=== PATIENT | female | born 1940 | race Caucasian/White ===

== ENCOUNTER → 2023-12-23 09:50 | Outpatient (REF) | payer OTHER, MEDICARE, SELFPAY ==
[2023-12-23 10:23] LABS: % Basophils 0.6 % (0-2); % Eosinophils 1.9 % (0-6); % Immature Granulocytes 0.8 % (0-0.5); % Lymphocytes 22.7 % (20.5-51.1); % Monocytes 8.4 % (1.7-9.3); % Neutrophils 65.6 % (42.2-75.2); Absolute Basophils 0.1 10^3/uL (0-0.2); Absolute Eosinophils 0.2 10^3/uL (0-0.7); Absolute Immature Granulocytes 0.1 10^3/uL (0-0.05); Absolute Lymphocytes 1.8 10^3/uL (1.2-3.4); Absolute Monocytes 0.7 10^3/uL (0.1-0.6); Absolute Neutrophils 5.2 10^3/uL (1.4-6.5); Hematocrit 36.1 % (37.0-47.0); Hemoglobin 12.2 g/dL (12.0-16.0); Mean Corp Hgb Conc. 33.8 g/dL (33.0-37.0); Mean Corpuscular Hgb 30.6 pg (27.0-31.0); Mean Corpuscular Volume 90.5 fL (81.0-99.0); Mean Platelet Volume 12.8 fL (7.4-10.4); Nucleated Red Blood Cells % 0 %; Platelet Count 169 10^3/uL (130-400); Red Blood Cell Count 3.99 10^6/uL (4.20-5.40); Red Cell Dist. Width 12.8 % (11.5-14.5); White Blood Cell Count 7.9 10^3/uL (4.8-10.8)
[2023-12-23 10:40] LABS: Ionized Calcium 0.99 mMOL/L (1.15-1.33)
[2023-12-23 10:52] LABS: ALT (SGPT) 29 U/L (0-35); AST (SGOT) 20 U/L (14-36); Albumin 3.5 g/dl (3.5-5.0); Alkaline Phosphatase 91 U/L (38-126); Blood Urea Nitrogen 16 mg/dl (7-17); Calcium 7.8 mg/dl (8.4-10.2); Carbon Dioxide 30 mmol/L (22-30); Chloride 105 mmol/L (98-107); Glucose 119 mg/dl (70-99); Sodium 138 mmol/L (135-145); Total Bilirubin 0.6 mg/dl (0.2-1.3); Total Protein 5.8 g/dl (6.3-8.2); eGFR > 60.00
== END ==
LOC: OLABP 09:50
PROVIDERS: ATTENDING PHYSICIAN Family Medicine
DX: R07.9 Chest pain, unspecified (principal); I10 Essential (primary) hypertension; M62.81 Muscle weakness (generalized); F03.90 Unspecified dementia, unspecified severity, without behavioral disturbance, psychotic disturbance, mood disturbance, and anxiety
CPT/HCPCS: 36415; 80053; 82330; 85025

== ENCOUNTER 2024-08-01 22:45 | Emergency (ER) | payer MEDICARE, OTHER, SELFPAY ==
[2024-08-01 22:51] VITALS: BP 205/76
[2024-08-01 22:53] VITALS: BMI 32.4
[2024-08-01 23:00] VITALS: BP 207/91
[2024-08-01 23:33] VITALS: BP 192/79
[2024-08-01 23:48] LABS: % Basophils 0.4 % (0-2); % Eosinophils 1.4 % (0-6); % Immature Granulocytes 0.4 % (0-0.5); % Lymphocytes 21.3 % (20.5-51.1); % Monocytes 8.1 % (1.7-9.3); % Neutrophils 68.4 % (42.2-75.2); Absolute Basophils 0.1 10^3/uL (0-0.2); Absolute Eosinophils 0.2 10^3/uL (0-0.7); Absolute Lymphocytes 2.4 10^3/uL (1.2-3.4); Absolute Monocytes 0.9 10^3/uL (0.1-0.6); Absolute Neutrophils 7.8 10^3/uL (1.4-6.5); Hematocrit 36.9 % (37.0-47.0); Hemoglobin 12.5 g/dL (12.0-16.0); Mean Corp Hgb Conc. 33.9 g/dL (33.0-37.0); Mean Corpuscular Hgb 29.7 pg (27.0-31.0); Mean Corpuscular Volume 87.6 fL (81.0-99.0); Mean Platelet Volume 11.6 fL (7.4-10.4); Nucleated Red Blood Cells % 0 %; Platelet Count 180 10^3/uL (130-400); Red Blood Cell Count 4.21 10^6/uL (4.20-5.40); Red Cell Dist. Width 13.1 % (11.5-14.5); White Blood Cell Count 11.4 10^3/uL (4.8-10.8)
[2024-08-01 23:59] LABS: ALT (SGPT) 26 U/L (0-35); AST (SGOT) 23 U/L (14-36); Alkaline Phosphatase 116 U/L (38-126); Blood Urea Nitrogen 23 mg/dl (7-17); Carbon Dioxide 29 mmol/L (22-30); Chloride 101 mmol/L (98-107); Estimated Creatinine Clearance 67 ml/min; Glucose 97 mg/dl (70-99); Potassium 3.9 mmol/L (3.5-5.1); Sodium 138 mmol/L (135-145); Total Bilirubin 0.5 mg/dl (0.2-1.3); Total Protein 6.2 g/dl (6.3-8.2); eGFR > 60.00
[2024-08-02] VITALS (7 sets, daily range): BP systolic 178–214; BP diastolic 65–77
--- NOTE | 2024-08-02 00:53 | ED.GENMED ---
History of Present Illness
General
Chief Complaint: Blood Pressure Problem
Source: patient, family and ambulance crew
Exam Limitations: none
Time Seen by Provider: 08/02/24 00:40
Nursing documentation reviewed up to this point in time: agreed with
History of Present Illness
History of Present Illness:
Pleasant 83-year-old female presents to the emergency department with hypertension. She resides at [facility]. She does have a history of hypertension. Tonight she had an espresso that had 150 mg of caffeine.. She noticed that her
blood pressure was elevated. Patient denies chest pain or shortness of breath. Reports no symptoms other than anxiety. She has a history of migraines and epileptic seizures. She denies any notion of having a migraine or seizure. She is
accompanied by her daughter. Other than the asymptomatic high blood pressure, she denies any complaints.
Past History
Past History
ED Past Medical History: Other (Alzheimer's dementia, migraines, seizures, hypertension, hyperlipidemia, pacemaker, GERD, hypothyroidism, sleep apnea, depression)
ED Past Surgical History: Other
Social History
Tobacco: Former smoker
Alcohol: None
Drug: None
Personal: Single
Living: other
Employment: Retired
Family History
Family History: Other
Review of Systems
Review of Systems
Allergies reviewed?: Yes
Unable to obtain full review of systems at this time due to: dementia
Other source history: family
All Other Systems: ROS reviewed and negative except as documented in HPI and ROS
Constitutional: Reports no symptoms
EENT: Reports no symptoms
Respiratory: Reports no symptoms
Cardiac: Reports no symptoms
ABD/GI: Reports no symptoms
: Reports no symptoms
Musculoskeletal: Reports no symptoms
Skin: Reports no symptoms
Neurological: Reports no symptoms
Endocrine: Reports no symptoms
Hematologic/Lymphatic: Reports no symptoms
Psychiatric: Reports no symptoms
Phy Exam
General Physical Exam
General Presentation: well appearing and no apparent distress
General Skin: warm and dry
General Habitus: normal
General Mental: alert
General Hydration: appears well hydrated
ENT Exam
ENT Exam: EOMI, pharynx normal, neck supple and normocephalic
Eye Exam
Eye Exam: PERRL, cornea clear and conjunctiva normal
Cardiovascular Exam
Cardiovascular Exam: regular rate/rhythm, no edema, no murmur and normal peripheral pulses
Pulmonary Exam
Pulmonary Exam: lungs clear, no respiratory distress, no rales, no crackles, no rhonchi, no stridor, no wheezing and no cough
Gastrointestinal Exam
Gastrointestinal Exam: normal bowel sounds, non tender, soft, no organomegaly, no pulsatile mass and non distended
Neurological Exam
Neurological Exam: alert, oriented x3 (Despite having a history of dementia, patient was awake alert and oriented with no obvious memory deficits noted.), no motor deficits and speech normal
Musculoskeletal Exam
Musculoskeletal Exam: full ROM and no edema
Skin Exam
Skin Exam: normal color, warm/dry, no rash and no petechia
Psychiatric Exam
Psychiatric Exam: normal mood/affect
Course
Orders/Labs/Results
Orders:
Orders
08/01/24 23:37
Complete Blood Count/With Diff Urgent
Comprehensive Metabolic Panel Urgent
08/02/24 01:25
Labetalol [Trandate] 200 mg PO NOW STA
Abnormal Lab Results
08/01/24
23:37
WBC 11.4 H 10^3/uL
(4.8-10.8)
Hct 36.9 L %
(37.0-47.0)
MPV 11.6 H fL
(7.4-10.4)
Absolute Neuts (auto) 7.8 H 10^3/uL
(1.4-6.5)
Absolute Monos (auto) 0.9 H 10^3/uL
(0.1-0.6)
BUN 23 H mg/dl
(7-17)
Total Protein 6.2 L g/dl
(6.3-8.2)
08/01/24 23:37
08/01/24 23:37
Vital Signs
Initial and Last Documented VS:
Initial Vital Signs
BP
205/76
08/01/24 22:51
Last Documented Vital Signs
Temp Pulse Resp BP Pulse Ox
97.7 F 62 14 178/65 94
08/01/24 22:52 08/02/24 03:30 08/02/24 03:30 08/02/24 03:00 08/02/24 03:30
*Critical Care Note
Total Time (30-74mins, 75-104mins- exclusive of procedures): Not Applicable
ED Attending Note
-
Portions of this chart may have been created with voice recognition software.� Occasional wrong word or��sound alike� substitutions may have occurred due to the inherent limitations of voice recognition software.
Discharge Plan
Departure
Patient Disposition: Home (Routine Discharge)
Date of Disposition: 08/02/24
Time of Disposition: 03:33
Patient with high blood pressure during this ER visit?: Yes
Condition: Good
Discharge Problem:
Hypertension
Instructions: High Blood Pressure (DC), BLOOD PRESSURE
Prescriptions:
No Action
aspirin 81 MG tablet,delayed release (DR/EC)
81 mg PO DAILY
pantoprazole 40 MG tablet,delayed release (DR/EC)
40 mg PO DAILY
levothyroxine [Levoxyl] 125 MCG tablet
125 mcg PO DAILY
escitalopram oxalate 10 MG tablet
20 mg PO DAILY
lacosamide [Vimpat] 100 MG tablet
100 mg PO BID
Rx Instructions:
pt must have brand name d/t overall not feeling well on generic.
Briviact 50 MG tablet
50 mg PO BID
Xarelto 2.5 mg Tablet
2.5 mg PO BID
cholecalciferol (vitamin D3) [Vitamin D3] 25 mcg (1,000 unit) Tablet
25 mcg PO DAILY
atorvastatin 80 mg tablet
80 mg PO HS
qm-zcg-YY-Ru-Zd-eidjgny-lutein 0.4-162-18 mg Tablet
1 tab PO DAILY
losartan 50 mg Tablet
50 mg PO BID@0800,1700 Qty: 60 0RF
acetaminophen 325 mg Tablet
650 mg PO Q4HPRN PRN (Reason: mild pain/SERRANO/temp> 100.4F) Qty: 60 0RF
labetalol 200 mg Tablet
400 mg PO BID AT 0800,1700 Qty: 60 0RF
cinacalcet 30 mg Tablet
30 mg PO BID Qty: 60 0RF
Referrals:
Sharmin Mendez MD [Family Provider] -
Activity Restrictions/Additional Instructions:
Please continue to take your hypertensive medications as previously directed.
It was a pleasure meeting you and taking part in your care. We hope for your continued healing and wellness.
Please read discharge instructions in their entirety. However, they are for general education and may not describe your exact diagnosis at discharge. Information on your ER visit and medical conditions were discussed with you along with appropriate
follow up information...
If indicated, please take your medications as instructed and indicated on discharge paperwork.
Please schedule a follow up appointment as directed. Call to schedule an appointment
Please return to the emergency department with ANY change in, persisting, or worsening of symptoms. If any of your symptoms do not improve, or persist, or become more severe within 6-12 hours, please return to the emergency department for further
care.
Please return to the emergency department if you develop a headache, neck pain/stiffness, fever greater than 100.4F, chest pain, shortness of breath, persistent nausea, vomiting, slurred speech, difficulty walking, numbness/tingling, weakness, signs
of infection or any other symptoms that are worrisome to you.
If you have any questions or concerns please do not hesitate to call the Hospital at or E-mail me directly at [email or web address]
Interventions
Interventions:
*Risk Screen - Suicide Last Done: 08/01/24 22:53
*General Assessment Last Done: 08/01/24 22:53
*Neglect/Abuse Screening Last Done: 08/01/24 22:53
ED- Fall Risk Assessment Last Done: 08/02/24 03:42
*ED COVID-19 Vaccine History Last Done: 08/01/24 22:53
*Nursing Disposition Last Done: 08/02/24 03:42
ED- Cardiac Assessment Last Done: 08/01/24 22:53
ED- Neurological Assessment Last Done: 08/01/24 22:53
ED- Pulmonary Assessment Last Done: 08/01/24 22:53
Discharge Date and Time
Discharge Date/Time: 08/02/24 03:43
Print Language: SWEDISH
[2024-08-02] MEDS: TRANDATE 200 MG PO (01:36)
== END 2024-08-02 03:43 | disposition home or self-care (01) ==
LOC: EMR 22:45
PROVIDERS: EMERGENCY PHYSICIAN Student in an Organized Health Care Education/Training Program; FAMILY PHYSICIAN Family Medicine
DX: I10 Essential (primary) hypertension (principal); G40.909 Epilepsy, unspecified, not intractable, without status epilepticus; Z87.891 Personal history of nicotine dependence
CPT/HCPCS: 99283; 80053; 85025

== ENCOUNTER 2024-11-01 23:22 | Emergency (ER) | payer MEDICARE, OTHER, SELFPAY ==
[2024-11-01 23:24] VITALS: BP 215/76; BMI 32.7
[2024-11-01 23:28] VITALS: BP 215/76
[2024-11-01 23:47] VITALS: BP 209/66
[2024-11-02] VITALS: BP 211/78
--- NOTE | 2024-11-02 00:06 | ED.GENMED ---
History of Present Illness
<STEPHON Sr - Last Filed: 11/02/24 00:46>
General
Chief Complaint: Blood Pressure Problem
Source: patient and family
Exam Limitations: none
Time Seen by Provider: 11/01/24 23:37
Nursing documentation reviewed up to this point in time: agreed with
History of Present Illness
History of Present Illness:
Pt is an 84yo F w/ PMH of Alzheimer's dementia, migraines, seizures, hypertension, hyperlipidemia, pacemaker, GERD, hypothyroidism, sleep apnea, depression who presents to the ED with her daughter for hypertension (systolic > 200) x 4 hours. Pt
currently lives at an assisted living facility where she is administered medication and has her BP checked twice daily. She states she received both doses of her medication today at 08:00am and 05:00pm, but when her BP was checked at 08:00pm, it was
measuring over 200 systolic which concerned her. Pt says that she has 'felt off' over the past two days. Pt denies SERRANO, dizziness, changes in vision, chest pain, SOB, dyspnea, abdominal pain, n/v/d/c, or falls. Pt states she does not smoke and has
not had caffeine to drink today.
Past History
<STEPHON Sr - Last Filed: 11/02/24 00:46>
Past History
ED Past Medical History: Other (Alzheimer's dementia, migraines, seizures, hypertension, hyperlipidemia, pacemaker, GERD, hypothyroidism, sleep apnea, depression)
ED Past Surgical History: Other
Social History
Tobacco: Former smoker
Alcohol: None
Drug: None
Personal: Single
Living: other
Employment: Retired
Family History
Family History: Other
Review of Systems
<STEPHON Sr - Last Filed: 11/02/24 00:46>
Review of Systems
Allergies reviewed?: Yes
Other source history: family
Constitutional: Denies fever, fatigue or chills
Respiratory: Denies cough or trouble breathing
Cardiac: Denies chest pain, palpitations or syncope
ABD/GI: Denies abdominal pain, nausea, vomiting, diarrhea or constipated
: Reports incontinence; Denies dysuria, flank pain or difficulty voiding
Musculoskeletal: Denies muscle pain or muscle stiffness
Neurological: Denies dizzy, headache, weakness or numbness
Phy Exam
<ST RembertoWI - Last Filed: 11/02/24 00:46>
General Physical Exam
General Presentation: well appearing and no apparent distress
General age: appears stated age
General Skin: warm and dry
General Habitus: normal and elderly
General Mental: alert
General Hydration: appears well hydrated
Eye Exam
Eye Exam: PERRL
Cardiovascular Exam
Cardiovascular Exam: regular rate/rhythm and pacemaker
Pulmonary Exam
Pulmonary Exam: lungs clear and no respiratory distress
Gastrointestinal Exam
Gastrointestinal Exam: non tender, soft and non distended
Neurological Exam
Neurological Exam: alert, oriented x3, no motor deficits, no sensory deficits and speech normal
<Saad Graves DO - Last Filed: 11/02/24 01:18>
Physical Exam
Physical Exam:
Physical Exam
General: no apparent distress, not acutely ill
Neck: No jaundice
Heart: Regular
Lungs: no acute respiratory distress.
Neuro: alert and oriented. no focal neurological deficits
Skin: no rash
Psychiatric: well kept. interactive and cooperative
Extremities: no edema.
Course
<STEPHON Sr - Last Filed: 11/02/24 00:46>
Orders/Labs/Results
Orders:
Orders
11/02/24 00:06
Losartan [Cozaar] 50 mg PO NOW STA
11/02/24 00:21
Complete Blood Count/With Diff Urgent
Comprehensive Metabolic Panel Urgent
Magnesium Urgent
11/02/24 00:43
Acetaminophen [Tylenol] 650 mg PO NOW STA
Abnormal Lab Results
11/02/24
00:21
RBC 4.16 L 10^6/uL
(4.20-5.40)
MCHC 32.1 L g/dL
(33.0-37.0)
MPV 12.0 H fL
(7.4-10.4)
Absolute Monos (auto) 0.7 H 10^3/uL
(0.1-0.6)
Carbon Dioxide 32 H mmol/L
(22-30)
Glucose 102 H mg/dl
(70-99)
Calcium 8.3 L mg/dl
(8.4-10.2)
Total Protein 6.2 L g/dl
(6.3-8.2)
11/02/24 00:21
11/02/24 00:21
Vital Signs
Initial and Last Documented VS:
Initial Vital Signs
Temp Pulse Resp BP Pulse Ox
97.8 F 63 15 215/76 97
11/01/24 23:24 11/01/24 23:24 11/01/24 23:24 11/01/24 23:24 11/01/24 23:24
Last Documented Vital Signs
Temp Pulse Resp BP Pulse Ox
97.8 F 60 16 188/71 97
11/01/24 23:24 11/02/24 01:00 11/02/24 01:00 11/02/24 01:00 11/01/24 23:24
Aliselt;Saad Graves, DO - Last Filed: 11/02/24 01:18>
Orders/Labs/Results
Orders:
Orders
11/02/24 00:06
Losartan [Cozaar] 50 mg PO NOW STA
11/02/24 00:21
Complete Blood Count/With Diff Urgent
Comprehensive Metabolic Panel Urgent
Magnesium Urgent
11/02/24 00:43
Acetaminophen [Tylenol] 650 mg PO NOW STA
Abnormal Lab Results
11/02/24
00:21
RBC 4.16 L 10^6/uL
(4.20-5.40)
MCHC 32.1 L g/dL
(33.0-37.0)
MPV 12.0 H fL
(7.4-10.4)
Absolute Monos (auto) 0.7 H 10^3/uL
(0.1-0.6)
Carbon Dioxide 32 H mmol/L
(22-30)
Glucose 102 H mg/dl
(70-99)
Calcium 8.3 L mg/dl
(8.4-10.2)
Total Protein 6.2 L g/dl
(6.3-8.2)
11/02/24 00:21
11/02/24 00:21
Vital Signs
Initial and Last Documented VS:
Initial Vital Signs
Temp Pulse Resp BP Pulse Ox
97.8 F 63 15 215/76 97
11/01/24 23:24 11/01/24 23:24 11/01/24 23:24 11/01/24 23:24 11/01/24 23:24
Last Documented Vital Signs
Temp Pulse Resp BP Pulse Ox
97.8 F 60 16 188/71 97
11/01/24 23:24 11/02/24 01:00 11/02/24 01:00 11/02/24 01:00 11/01/24 23:24
<STEPHON Sr - Last Filed: 11/02/24 00:46>
MDM/Problems Addressed
Differential Diagnosis Includes:
essential hypertension, hypertensive emergency
<Saad Graves DO - Last Filed: 11/02/24 01:18>
MDM/Problems Addressed
MDM/Problems Addressed:
Blood pressure
Chronic conditions affecting care: HTN
Acute Exacerbation and/or Progression of Chronic Illness: HTN
<STEPHON Sr - Last Filed: 11/02/24 00:46>
*Critical Care Note
Total Time (30-74mins, 75-104mins- exclusive of procedures): Not Applicable
<Saad Graves DO - Last Filed: 11/02/24 01:18>
*Pulse Oximetry
Patient hypoxic: no
*Boom Tender Interpretation
Rate: normal
Interpretation: normal
Heart Rate: 64
Rhythm: sinus
<STEPHON Sr - Last Filed: 11/02/24 00:46>
Update Note
Update Note:
Seen with student examined independently 84-year-old female multiple chronic medical conditions including hypertension on labetalol 200 twice daily losartan 50 twice daily has had high blood pressure intermittently for a while, over 200 systolic
here patient really without any new symptoms she has chronic incontinence some chronic dizziness she has Alzheimer's she lives in independent living here she is very pleasant looks comfortable, percent accompanied by her daughter will check
electrolytes I suspect to be normal with normal few months ago, given extra dose of losartan could also consider increasing her labetalol does have a pacemaker set at 60 reportedly
11/02/24 @ 12:43am: Pt states she is developing a headache, but is otherwise comfortable; She states she usually takes Tylenol for the pain; will update Dr. Graves for medication order - AD
<Saad Graves DO - Last Filed: 11/02/24 01:18>
Update Note
Update Note:
Seen with student examined independently 84-year-old female multiple chronic medical conditions including hypertension on labetalol 200 twice daily losartan 50 twice daily has had high blood pressure intermittently for a while, over 200 systolic
here patient really without any new symptoms she has chronic incontinence some chronic dizziness she has Alzheimer's she lives in independent living here she is very pleasant looks comfortable, percent accompanied by her daughter will check
electrolytes I suspect to be normal with normal few months ago, given extra dose of losartan could also consider increasing her labetalol does have a pacemaker set at 60 reportedly
11/02/24 @ 12:43am: Pt states she is developing a headache, but is otherwise comfortable; She states she usually takes Tylenol for the pain; will update Dr. Graves for medication order - AD
Update, patient resting comfortably blood pressure improved labs noted
ED Attending Note
<STEPHON Sr - Last Filed: 11/02/24 00:46>
-
Portions of this chart may have been created with voice recognition software.� Occasional wrong word or��sound alike� substitutions may have occurred due to the inherent limitations of voice recognition software.
Discharge Plan
Departure
Patient Disposition: Home (Routine Discharge)
Date of Disposition: 11/02/24
Time of Disposition: 01:17
Patient with high blood pressure during this ER visit?: Yes
Condition: Good
Discharge Problem:
Essential (primary) hypertension
Instructions: BLOOD PRESSURE
Prescriptions:
No Action
aspirin 81 MG tablet,delayed release (DR/EC)
81 mg PO DAILY
pantoprazole 40 MG tablet,delayed release (DR/EC)
40 mg PO DAILY
levothyroxine [Levoxyl] 125 MCG tablet
125 mcg PO DAILY
escitalopram oxalate 10 MG tablet
20 mg PO DAILY
lacosamide [Vimpat] 100 MG tablet
100 mg PO BID
Rx Instructions:
pt must have brand name d/t overall not feeling well on generic.
Briviact 50 MG tablet
50 mg PO BID
Xarelto 2.5 mg Tablet
2.5 mg PO BID
cholecalciferol (vitamin D3) [Vitamin D3] 25 mcg (1,000 unit) Tablet
25 mcg PO DAILY
atorvastatin 80 mg tablet
80 mg PO HS
eq-kji-QI-Gz-No-vccsfeh-lutein 0.4-162-18 mg Tablet
1 tab PO DAILY
losartan 50 mg Tablet
50 mg PO BID@0800,1700 Qty: 60 0RF
acetaminophen 325 mg Tablet
650 mg PO Q4HPRN PRN (Reason: mild pain/SERRANO/temp> 100.4F) Qty: 60 0RF
labetalol 200 mg Tablet
400 mg PO BID AT 0800,1700 Qty: 60 0RF
cinacalcet 30 mg Tablet
30 mg PO BID Qty: 60 0RF
Referrals:
Sharmin Mendez MD [Family Provider] - Next open appointment
Interventions
Interventions:
*Risk Screen - Suicide Last Done: 11/01/24 23:31
*General Assessment Last Done: 11/01/24 23:31
*Neglect/Abuse Screening Last Done: 11/01/24 23:31
*ED COVID-19 Vaccine History Last Done: 11/01/24 23:31
ED- Cardiac Assessment Last Done: 11/01/24 23:41
ED- Neurological Assessment Last Done: 11/01/24 23:41
ED- Pulmonary Assessment Last Done: 11/01/24 23:41
Discharge Date and Time
Print Language: MICRONESIAN
[2024-11-02] MEDS: COZAAR 50 MG PO (00:22)
[2024-11-02 00:23] VITALS: BP 204/79
[2024-11-02 00:42] LABS: ALT (SGPT) 24 U/L (0-35); AST (SGOT) 21 U/L (14-36); Alkaline Phosphatase 100 U/L (38-126); Blood Urea Nitrogen 14 mg/dl (7-17); Calcium 8.3 mg/dl (8.4-10.2); Carbon Dioxide 32 mmol/L (22-30); Chloride 101 mmol/L (98-107); Estimated Creatinine Clearance 66 ml/min; Glucose 102 mg/dl (70-99); Magnesium 1.8 mg/dl (1.6-2.3); Potassium 4.1 mmol/L (3.5-5.1); Sodium 139 mmol/L (135-145); Total Bilirubin 0.5 mg/dl (0.2-1.3); Total Protein 6.2 g/dl (6.3-8.2); eGFR > 60.00
[2024-11-02] MEDS: TYLENOL 650 MG PO (00:46)
[2024-11-02 00:47] LABS: % Basophils 0.5 % (0-2); % Eosinophils 1.6 % (0-6); % Immature Granulocytes 0.5 % (0-0.5); % Lymphocytes 23.6 % (20.5-51.1); % Monocytes 8.4 % (1.7-9.3); % Neutrophils 65.4 % (42.2-75.2); Absolute Eosinophils 0.1 10^3/uL (0-0.7); Absolute Lymphocytes 2.1 10^3/uL (1.2-3.4); Absolute Monocytes 0.7 10^3/uL (0.1-0.6); Absolute Neutrophils 5.7 10^3/uL (1.4-6.5); Hematocrit 38.9 % (37.0-47.0); Hemoglobin 12.5 g/dL (12.0-16.0); Mean Corp Hgb Conc. 32.1 g/dL (33.0-37.0); Mean Corpuscular Volume 93.5 fL (81.0-99.0); Nucleated Red Blood Cells % 0 %; Platelet Count 159 10^3/uL (130-400); Red Blood Cell Count 4.16 10^6/uL (4.20-5.40); Red Cell Dist. Width 13.2 % (11.5-14.5); White Blood Cell Count 8.8 10^3/uL (4.8-10.8)
[2024-11-02 01:00] VITALS: BP 188/71
== END 2024-11-02 01:27 | disposition home or self-care (01) ==
LOC: EMR 23:22
PROVIDERS: EMERGENCY PHYSICIAN Emergency Medicine; FAMILY PHYSICIAN Family Medicine
DX: I10 Essential (primary) hypertension (principal); R51.9 Headache, unspecified; G30.9 Alzheimer's disease, unspecified; F02.80 Dementia in other diseases classified elsewhere, unspecified severity, without behavioral disturbance, psychotic disturbance, mood disturbance, and anxiety; E78.5 Hyperlipidemia, unspecified; E03.9 Hypothyroidism, unspecified; K21.9 Gastro-esophageal reflux disease without esophagitis; G47.30 Sleep apnea, unspecified; Z87.891 Personal history of nicotine dependence; Z95.0 Presence of cardiac pacemaker; Z79.899 Other long term (current) drug therapy
CPT/HCPCS: 99283; 80053; 83735; 85025

== ENCOUNTER 2024-11-06 23:34 | Emergency (ER) | payer MEDICARE, OTHER, SELFPAY ==
[2024-11-06 23:36] VITALS: BP 174/111
[2024-11-06 23:42] VITALS: BP 174/111
[2024-11-06 23:59] VITALS: BMI 32.3
[2024-11-07] VITALS (10 sets, daily range): BP systolic 136–220; BP diastolic 53–72
[2024-11-07] MEDS: TRANDATE 20 MG IV (01:02)
--- NOTE | 2024-11-07 01:04 | ED.GENMED ---
History of Present Illness
General
Chief Complaint: Blood Pressure Problem
Source: patient and family
Exam Limitations: none
Time Seen by Provider: 11/06/24 23:53
History of Present Illness
History of Present Illness:
See MDM
Past History
Past History
ED Past Medical History: Other (Alzheimer's dementia, migraines, seizures, hypertension, hyperlipidemia, pacemaker, GERD, hypothyroidism, sleep apnea, depression)
ED Past Surgical History: Other
Social History
Tobacco: Former smoker
Alcohol: None
Drug: None
Personal: Single
Living: other
Employment: Retired
Family History
Family History: Other
Phy Exam
Physical Exam
Physical Exam:
See MDM
Course
Orders/Labs/Results
Orders:
Orders
11/06/24 23:51
CMP [Comprehensive Metabolic Panel] Urgent
Complete Blood Count/With Diff Urgent
11/07/24 00:11
CT Head W/o Iv Contrast Urgent
Comment:
Reason For Exam: headache
Labetalol HCl [Trandate] 20 mg IV NOW STA
11/07/24 01:49
HydrALAZINE [Apresoline] 10 mg IV NOW STA
Abnormal Lab Results
11/07/24
01:00
MCHC 31.7 L g/dL
(33.0-37.0)
MPV 11.9 H fL
(7.4-10.4)
Abs Immat Gran (auto) 0.1 H 10^3/uL
(0-0.05)
Immature Gran % 1.5 H %
(0-0.5)
Carbon Dioxide 34 H mmol/L
(22-30)
Glucose 100 H mg/dl
(70-99)
ALT 36 H U/L
(0-35)
Alkaline Phosphatase 130 H U/L
(38-126)
11/07/24 01:00
11/07/24 01:00
Vital Signs
Initial and Last Documented VS:
Initial Vital Signs
Temp Pulse Resp BP Pulse Ox
97.6 F 66 22 174/111 98
11/06/24 23:36 11/06/24 23:36 11/06/24 23:36 11/06/24 23:36 11/06/24 23:36
Last Documented Vital Signs
Temp Pulse Resp BP Pulse Ox
97.6 F 61 16 195/69 97
11/06/24 23:36 11/07/24 01:33 11/07/24 01:33 11/07/24 01:32 11/07/24 01:33
MDM/Problems Addressed
Differential Diagnosis Includes:
HPI and MDM Narrative:
84-year-old female presenting for evaluation of elevated blood pressure. She noted the blood pressure is elevated today. This is associated with a headache. She was evaluated last week for the same thing. She has cardiology follow-up on
Friday. She is compliant with her 200 mg labetalol twice daily and 50 mg losartan twice daily. On exam, she is well-appearing and nontoxic. Will give dose of IV labetalol. We discussed increasing her labetalol to 300 mg twice daily until she
is evaluated by her heating and ventilating drafter. She does have a pacemaker
Physical exam
General: Well appearing and non-toxic
HEENT: protecting airway. Pupils equal and reactive
Neck: appears supple
CV: No evidence of cyanosis. Regular rate and rhythm
Resp: No accessory muscle use
Abd: Non-distended
Extremities: No deformities
Neuro: alert
Psych: Normal affect
Skin: Intact
Problems Addressed including Acute and Chronic Conditions affecting care:
1. Hypertension
Acuity: acute
Prognosis: unstable
Details: Patient given dose of IV labetalol.
Updates
CT head negative. Blood work has improved somewhat but headache has completely resolved. Both patient and daughter feel comfortable going home
Differential Diagnosis (but not limited to): Hypertension emergency, intracranial hemorrhage, anxiety
Testing considered: Troponin but she denies chest pain
Drug therapy (if applicable): OTC meds, please see d/c instruction regarding Rx drugs
Amount and/or Complexity of Data Reviewed
Clinical info obtained from: Patient and daughter
External data reviewed: N/A
Labs I independently reviewed (but not limited to): White blood cell count normal, electrolytes
Radiology: The CT scan was personally and independently reviewed. In addition, official CT report reviewed.
Pulse Ox: not hypoxic
EKG independently reviewed: N/A
Tandem Operator: N/A
Critical Care: N/A
Risk of Complication:
Social Determinants of health: Good social support
Discussed with other providers: N/A
Escalation of Care includes Admit/Obs: After being observed in the Emergency Department, pt stable for discharge.
Occasional wrong word or 'sound a like' substitutions may have occurred due to the inherent limitations of voice recognition software. Read the chart carefully and recognize, using context, where substitutions have occurred.
*Critical Care Note
Total Time (30-74mins, 75-104mins- exclusive of procedures): Not Applicable
ED Attending Note
-
Portions of this chart may have been created with voice recognition software.� Occasional wrong word or��sound alike� substitutions may have occurred due to the inherent limitations of voice recognition software.
Discharge Plan
Departure
Patient Disposition: Home (Routine Discharge)
Date of Disposition: 11/07/24
Time of Disposition: 01:52
Patient with high blood pressure during this ER visit?: Yes
Discharge Problem:
Hypertensive urgency
Instructions: High Blood Pressure (DC), BLOOD PRESSURE
Prescriptions:
No Action
aspirin 81 MG tablet,delayed release (DR/EC)
81 mg PO DAILY
pantoprazole 40 MG tablet,delayed release (DR/EC)
40 mg PO DAILY
levothyroxine [Levoxyl] 125 MCG tablet
125 mcg PO DAILY
escitalopram oxalate 10 MG tablet
20 mg PO DAILY
lacosamide [Vimpat] 100 MG tablet
100 mg PO BID
Rx Instructions:
pt must have brand name d/t overall not feeling well on generic.
Briviact 50 MG tablet
50 mg PO BID
Xarelto 2.5 mg Tablet
2.5 mg PO BID
cholecalciferol (vitamin D3) [Vitamin D3] 25 mcg (1,000 unit) Tablet
25 mcg PO DAILY
atorvastatin 80 mg tablet
80 mg PO HS
io-duo-WL-Eg-Ud-iqvbdcc-lutein 0.4-162-18 mg Tablet
1 tab PO DAILY
losartan 50 mg Tablet
50 mg PO BID@0800,1700 Qty: 60 0RF
acetaminophen 325 mg Tablet
650 mg PO Q4HPRN PRN (Reason: mild pain/SERRANO/temp> 100.4F) Qty: 60 0RF
labetalol 200 mg Tablet
400 mg PO BID AT 0800,1700 Qty: 60 0RF
cinacalcet 30 mg Tablet
30 mg PO BID Qty: 60 0RF
Activity Restrictions/Additional Instructions:
Please return for any worsening symptoms.
You may return at any time if you have further concerns.
Please follow up with your doctor at the first available appointment, preferably this week.
Please keep your cardiology appointment this week.
Please start taking 300 mg of labetalol twice a day starting tomorrow. Continue the losartan as prescribed.
Thank you for choosing [facility].
Interventions
Interventions:
*Risk Screen - Suicide Last Done: 11/06/24 23:36
*General Assessment Last Done: 11/06/24 23:36
*Neglect/Abuse Screening Last Done: 11/06/24 23:36
ED- Fall Risk Assessment Last Done: 11/06/24 23:36
*ED COVID-19 Vaccine History Last Done: 11/06/24 23:36
Discharge Date and Time
Print Language: INDONESIAN
[2024-11-07 01:11] LABS: % Basophils 0.5 % (0-2); % Eosinophils 1.6 % (0-6); % Immature Granulocytes 1.5 % (0-0.5); % Lymphocytes 24.1 % (20.5-51.1); % Monocytes 7.5 % (1.7-9.3); % Neutrophils 64.8 % (42.2-75.2); Absolute Eosinophils 0.1 10^3/uL (0-0.7); Absolute Immature Granulocytes 0.1 10^3/uL (0-0.05); Absolute Lymphocytes 2.1 10^3/uL (1.2-3.4); Absolute Monocytes 0.6 10^3/uL (0.1-0.6); Absolute Neutrophils 5.5 10^3/uL (1.4-6.5); Hematocrit 42.9 % (37.0-47.0); Hemoglobin 13.6 g/dL (12.0-16.0); Mean Corp Hgb Conc. 31.7 g/dL (33.0-37.0); Mean Corpuscular Hgb 29.8 pg (27.0-31.0); Mean Corpuscular Volume 94.1 fL (81.0-99.0); Mean Platelet Volume 11.9 fL (7.4-10.4); Nucleated Red Blood Cells % 0 %; Platelet Count 187 10^3/uL (130-400); Red Blood Cell Count 4.56 10^6/uL (4.20-5.40); Red Cell Dist. Width 13.2 % (11.5-14.5); White Blood Cell Count 8.5 10^3/uL (4.8-10.8)
[2024-11-07 01:20] LABS: ALT (SGPT) 36 U/L (0-35); AST (SGOT) 30 U/L (14-36); Albumin 4.7 g/dl (3.5-5.0); Alkaline Phosphatase 130 U/L (38-126); Blood Urea Nitrogen 14 mg/dl (7-17); Carbon Dioxide 34 mmol/L (22-30); Chloride 99 mmol/L (98-107); Estimated Creatinine Clearance 65 ml/min; Glucose 100 mg/dl (70-99); Potassium 4.1 mmol/L (3.5-5.1); Sodium 138 mmol/L (135-145); Total Bilirubin 0.5 mg/dl (0.2-1.3); Total Protein 7.3 g/dl (6.3-8.2); eGFR > 60.00
[2024-11-07] MEDS: APRESOLINE 10 MG IV (01:53)
== END 2024-11-07 02:54 | disposition home or self-care (01) ==
LOC: EMR 23:34
PROVIDERS: Student in an Organized Health Care Education/Training Program; EMERGENCY PHYSICIAN Student in an Organized Health Care Education/Training Program; FAMILY PHYSICIAN Family Medicine
DX: I16.0 Hypertensive urgency (principal); G30.9 Alzheimer's disease, unspecified; F02.83 Dementia in other diseases classified elsewhere, unspecified severity, with mood disturbance; E03.9 Hypothyroidism, unspecified; E78.5 Hyperlipidemia, unspecified; G47.30 Sleep apnea, unspecified; K21.9 Gastro-esophageal reflux disease without esophagitis; Z87.891 Personal history of nicotine dependence; Z95.0 Presence of cardiac pacemaker
CPT/HCPCS: 96374; 96375; 99284; 70450; 80053; 85025

== ENCOUNTER 2024-11-08 03:03 | Observation (INO) | payer MEDICARE, OTHER, SELFPAY ==
[2024-11-07 22:53] VITALS: BP 215/76; BMI 31.8
[2024-11-07 23:00] VITALS: BP 200/69
--- NOTE | 2024-11-07 23:10 | ED.GENMED ---
History of Present Illness
General
Chief Complaint: Blood Pressure Problem
Source: patient
Exam Limitations: none
Time Seen by Provider: 11/07/24 22:53
Nursing documentation reviewed up to this point in time: agreed with
History of Present Illness
History of Present Illness:
Patient is an 84-year-old female who presents to the ER for elevated blood pressure. Patient was seen here this morning at 1 AM for evaluation of elevated blood pressure. She had a headache at that time. Patient had a CAT scan of her head which
was negative. Her labetalol was increased from 200 mg twice daily to 300 mg twice daily until she sees her pull worker which is scheduled for this week.
Patient resides at [facility]. She was not given her 300 mg this morning she only took 200 mg but she did take 300 mg this evening. She does report however that when they checked her blood pressure this evening it was high in the
190s/200s systolically which is what prompted them to send her to the ER. She does complain of mild headache denies any blurry vision.
She denies any associated chest pain shortness of breath.
Patient's labs were checked this morning at 1 AM.
This is patient's third visit for hypertension, she was here on November 02 as well
Past History
Past History
ED Past Medical History: Other (Alzheimer's dementia, migraines, seizures, hypertension, hyperlipidemia, pacemaker, GERD, hypothyroidism, sleep apnea, depression)
ED Past Surgical History: Other
Social History
Tobacco: Former smoker
Alcohol: None
Drug: None
Personal: Single
Living: other
Employment: Retired
Family History
Family History: Other
Phy Exam
General Physical Exam
General Presentation: no apparent distress
General age: appears stated age
General Skin: warm and dry
General Habitus: elderly
General Mental: alert
General Hydration: appears well hydrated
Cardiovascular Exam
Cardiovascular Exam: regular rate/rhythm, no murmur and normal peripheral pulses
Pulmonary Exam
Pulmonary Exam: lungs clear and no respiratory distress
Neurological Exam
Neurological Exam: alert and oriented x3
Musculoskeletal Exam
Musculoskeletal Exam: full ROM
Skin Exam
Skin Exam: normal color and warm/dry
Psychiatric Exam
Psychiatric Exam: normal mood/affect
Course
Orders/Labs/Results
Orders:
Orders
11/08/24 00:08
Acetaminophen [Tylenol] 650 mg PO NOW STA
11/08/24 00:10
Cardiac Monitoring- Treatment ONCE
IV Insert/Care/Rem.- Treatment PRN
11/08/24 00:11
Electrocardiogram (*1) Stat
Reason for Study: Abdominal Pain
EKG- Treatment ONCE
11/08/24 00:19
Complete Blood Count/With Diff Urgent
11/08/24 01:23
Comprehensive Metabolic Panel Urgent
Comment: REDRAW
Abnormal Lab Results
11/08/24
00:19
MCHC 32.4 L g/dL
(33.0-37.0)
MPV 11.7 H fL
(7.4-10.4)
Absolute Monos (auto) 0.8 H 10^3/uL
(0.1-0.6)
11/08/24 00:19
Vital Signs
Initial and Last Documented VS:
Initial Vital Signs
Temp Pulse Resp BP Pulse Ox
98.4 F 60 16 215/76 97
11/07/24 22:53 11/07/24 22:53 11/07/24 22:53 11/07/24 22:53 11/07/24 22:53
Last Documented Vital Signs
Temp Pulse Resp BP Pulse Ox
98.4 F 60 17 164/64 97
11/07/24 22:53 11/08/24 01:30 11/08/24 01:30 11/08/24 01:30 11/08/24 00:00
[employer] consulted with Physician
Met[employer] consulted with physician?: Yes
Name of Physician Consulted: Rowan
MDM/Problems Addressed
MDM/Problems Addressed:
Patient is an 82-year-old female who presents back to the ER for evaluation of hypertension and headache. This is patient's third visit since November 02. She was seen here earlier this morning at 1 AM and had basic labs and a CAT scan. She did
have her labetalol increased and took the increased dose this evening however took her regular dose this morning. She presents with headache and still feels symptomatic because of her blood pressure. She is now comfortable going home nursing
facility sent patient here her blood pressure has been persistently elevated as she has this logged in a journal. She had a CAT scan done last night she is a normal neurologic exam therefore this was not redone. Her kidney function was normal
yesterday as well as November 03 however I did review labs. Will admit for symptomatic htn.
*Pulse Oximetry
Patient hypoxic: no
*EKG
Interpreted by ED Provider?: Yes
Interpretation: normal
Comparison EKG: no changes
Heart Rate: 60
Rate: normal
Rhythm: sinus
Ischemia: no ischemia
*Critical Care Note
Total Time (30-74mins, 75-104mins- exclusive of procedures): Not Applicable
Data Reviewed
Review of Other/Old Records Reveals: Labs and Radiology Studies
Source: patient and family
ED Attending Note
-
Portions of this chart may have been created with voice recognition software.� Occasional wrong word or��sound alike� substitutions may have occurred due to the inherent limitations of voice recognition software.
Discharge Plan
Departure
Patient Disposition: Admit
Date of Disposition: 11/08/24
Time of Disposition: 01:58
Admit to: Telemetry
Admit to doctor: hospitalist
Presentation/result/management discussed w/ accepting MD/DO: Hospitalist
Patient with high blood pressure during this ER visit?: Yes
Condition: Fair
Covid-19: Not Applicable
Discharge Problem:
Hypertensive urgency
Prescriptions:
No Action
aspirin 81 MG tablet,delayed release (DR/EC)
81 mg PO DAILY
pantoprazole 40 MG tablet,delayed release (DR/EC)
40 mg PO DAILY
escitalopram oxalate 10 MG tablet
20 mg PO DAILY
Briviact 50 MG tablet
50 mg PO BID
Xarelto 2.5 mg Tablet
2.5 mg PO BID
atorvastatin 80 mg tablet
80 mg PO HS
losartan 50 mg Tablet
50 mg PO BID@0800,1700 Qty: 60 0RF
acetaminophen 325 mg Tablet
650 mg PO Q4HPRN PRN (Reason: mild pain/SERRANO/temp> 100.4F) Qty: 60 0RF
cinacalcet 30 mg Tablet
30 mg PO BID Qty: 60 0RF
labetalol 300 mg Tablet
300 mg PO BID
Mucinex Fast-Max Cold-Flu 9-93-593-200 mg Tablet
2 tab PO Q4H PRN (Reason: cough/congestion)
cholecalciferol (vitamin D3) [Vitamin D3] 50 mcg (2,000 unit) Tablet
50 mcg PO DAILY
lacosamide [Vimpat] 100 mg Tablet
100 mg PO BID
Centrum Mvi Women Gummies
1 gummy PO DAILY
levothyroxine 125 mcg Tablet
125 mcg PO SUTUWETHFRSA
Referrals:
Sharmin Mendez MD [Family Provider] -
Interventions
Interventions:
*Risk Screen - Suicide Last Done: 11/07/24 22:53
*General Assessment Last Done: 11/07/24 22:53
*Neglect/Abuse Screening Last Done: 11/07/24 22:53
*ED COVID-19 Vaccine History Last Done: 11/07/24 22:53
ED- Cardiac Assessment Last Done: 11/07/24 23:05
ED- Neurological Assessment Last Done: 11/07/24 23:05
ED- Pulmonary Assessment Last Done: 11/07/24 23:05
Discharge Date and Time
Print Language: FAROESE
[2024-11-07 23:16] VITALS: BP 192/77
[2024-11-07 23:30] VITALS: BP 192/68
[2024-11-08] VITALS (19 sets, daily range): BP systolic 112–190; BP diastolic 45–77; PULSE 65; BMI 32.0; BMI 31.8
[2024-11-08] MEDS: TYLENOL 650 MG PO (00:18)
[2024-11-08 01:13] LABS: % Basophils 0.5 % (0-2); % Eosinophils 1.3 % (0-6); % Immature Granulocytes 0.3 % (0-0.5); % Lymphocytes 22.5 % (20.5-51.1); % Monocytes 8.4 % (1.7-9.3); Absolute Basophils 0.1 10^3/uL (0-0.2); Absolute Eosinophils 0.1 10^3/uL (0-0.7); Absolute Lymphocytes 2.1 10^3/uL (1.2-3.4); Absolute Monocytes 0.8 10^3/uL (0.1-0.6); Absolute Neutrophils 6.1 10^3/uL (1.4-6.5); Hematocrit 38.9 % (37.0-47.0); Hemoglobin 12.6 g/dL (12.0-16.0); Mean Corp Hgb Conc. 32.4 g/dL (33.0-37.0); Mean Corpuscular Hgb 29.6 pg (27.0-31.0); Mean Corpuscular Volume 91.5 fL (81.0-99.0); Mean Platelet Volume 11.7 fL (7.4-10.4); Nucleated Red Blood Cells % 0 %; Platelet Count 161 10^3/uL (130-400); Red Blood Cell Count 4.25 10^6/uL (4.20-5.40); Red Cell Dist. Width 13.2 % (11.5-14.5); White Blood Cell Count 9.2 10^3/uL (4.8-10.8)
[2024-11-08 02:08] LABS: ALT (SGPT) 29 U/L (0-35); AST (SGOT) 22 U/L (14-36); Alkaline Phosphatase 122 U/L (38-126); Blood Urea Nitrogen 15 mg/dl (7-17); Calcium 8.2 mg/dl (8.4-10.2); Carbon Dioxide 30 mmol/L (22-30); Chloride 101 mmol/L (98-107); Estimated Creatinine Clearance 65 ml/min; Glucose 103 mg/dl (70-99); Potassium 3.7 mmol/L (3.5-5.1); Sodium 138 mmol/L (135-145); Total Bilirubin 0.7 mg/dl (0.2-1.3); Total Protein 6.3 g/dl (6.3-8.2); eGFR > 60.00
--- NOTE | 2024-11-08 02:44 | HPS.HSE ---
Family Physician
-
Family Physician: Sharmin Mendez
Chief Complaint
-
High BP
History of Present Illness
Patient is an 84y F with PMH significant for hypertension, PAD, hypothyroidism and mild dementia who presents to ED complaining of elevated BP. Patient monitors her BP at home and notes that it has been elevated for the past several days.
Patient reports a mild frontal headache - at most a 10 - that she has also had for the past several days. She states that she does not typically have headaches. She states that her vision seemed somewhat blurry yesterday - though this has since
improved. No numbness / tingling, focal weakness, chest pain, dyspnea, dizziness, etc.
Patient has been seen in the ED here on 08/02, 11/02, 11/06 and now today for concerns regarding elevated BP.
She monitors her BP closely at home and has a log.
During visit 11/06 - it was recommended to increase her labetalol to 300mg BID. She took her first dose of this this evening.
At the time of my exam, patient is resting comfortably in no distress.
Medical History
Past Medical History
Past Medical History: Reports Other
Additional Past Medical History:
ASCVD / PAD
Seizure Disorder (last seizure several years ago)
Hypothyroidism
Hyperparathyroidism
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
JASON
Alzheimer's Dementia (very mild)
History of DVT
Past Surgical History: Reports Other
Additional Past Surgical History:
Right NIKKI
PPM Placement
Bilateral LE Arterial Stents
Cholecystectomy
Hysterectomy
Social History
Tobacco: Former Smoker (Quit smoking in 1991. Approx 30 pack years total use.)
Alcohol: None
Drug: None
Family History
Family History: Not pertinent
Allergies / Home Medications
Allergies reflects when Allergies were last updated in [facility].
Home Medications with original date entered in [facility]
Allergy/Medication List:
Allergies
Allergy/AdvReac Type Severity Reaction Status Date / Time
amoxicillin Allergy Intermediate Unknown Verified 11/07/24 23:04
shellfish derived Allergy Intermediate Nausea / Verified 11/07/24 23:04
Vomiting
lacosamide Allergy Unknown Cannot Verified 11/07/24 23:04
have
generic
form, only
brand name
Home Medications
aspirin 81 mg tablet,delayed release 81 mg PO DAILY Blood Clot Prevention/Tx 10/20/20
brivaracetam 50 mg tablet (Briviact) 50 mg PO BID Seizures 10/20/20
escitalopram oxalate 10 mg tablet 20 mg PO DAILY Mental Health/Anxiety 10/20/20
pantoprazole 40 mg tablet,delayed release 40 mg PO DAILY Gastrointestinal Issue 10/20/20
rivaroxaban 2.5 mg tablet (Xarelto) 2.5 mg PO BID Blood Clot Prevention/Tx 03/08/23
atorvastatin 80 mg tablet 80 mg PO HS High Cholesterol 12/09/23
acetaminophen 325 mg tablet 650 mg (2 x 325 mg) PO Q4HPRN PRN mild pain/SERRANO/temp> 100.4F #60 tabs 12/12/23
cinacalcet 30 mg tablet 30 mg PO BID #60 tabs 12/12/23
losartan 50 mg tablet 50 mg PO BID@0800,1700 #60 tabs 12/12/23
Centrum Mvi Women Gummies 1 gummy PO DAILY 11/07/24
cholecalciferol (vitamin D3) 50 mcg (2,000 unit) tablet (Vitamin D3) 50 mcg PO DAILY 11/07/24
labetalol 300 mg tablet 300 mg PO BID 11/07/24
lacosamide 100 mg tablet (Vimpat) 100 mg PO BID 11/07/24
levothyroxine 125 mcg tablet 125 mcg PO SUTUWETHFRSA 11/07/24
knqvykvpkjied-FE-znoywzrddnrfi-guaifen 5 mg-10 mg-325 mg-200 mg tablet (Mucinex Fast-Max Cold-Flu) 2 tab PO Q4H PRN cough/congestion 11/07/24
Review of Systems
-
History Source: Patient
A 12 point ROS was completed and negative except as noted: Yes
Constitutional: Reports Fatigue; Denies Fever or Chills
EENT: Reports Other (Dry mouth); Denies Sore Throat
Respiratory: Denies Cough or Trouble Breathing
Cardiac: Denies Chest Pain or Palpitations
Abdomen/GI: Denies Abdominal Pain, Nausea, Vomiting or Diarrhea
: Reports Incontinence; Denies Dysuria or Frequency
Musculoskeletal: Denies Joint Pain or Edema
Neurological: Reports Headache; Denies Dizzy, Weakness or Numbness
Psych: Denies Depression or Anxiety
Physical Exam
Vital Signs
Vital Signs
Temp Pulse Resp BP Pulse Ox
98.4 F 64 15 179/60 97
11/07/24 22:53 11/08/24 02:00 11/08/24 02:00 11/08/24 02:00 11/08/24 00:00
Physical Exam
General: Other (84y F in no acute distress.)
HEENT: Moist mucous membranes and PERRLA
Respiratory: Clear; No Wheezes, Rales or Rhonchi
Cardiac: S1/S2 and Regular Rhythm; No Murmur
GI: Soft, Non Tender, Non Distended and Normal Bowel Sounds
Musculoskeletal: No Clubbing, No Cyanosis and No Edema
Neuro: Nonfocal/grossly intact
Laboratory Results
-
11/08/24 00:19
11/08/24 01:45
Laboratory Results
Total Bilirubin 0.7 mg/dl (0.2-1.3) 11/08/24 01:45
AST 22 U/L (14-36) 11/08/24 01:45
ALT 29 U/L (0-35) 11/08/24 01:45
Alkaline Phosphatase 122 U/L (38-126) 11/08/24 01:45
Impression/Plan
-
A/P: Patient is an 84y F with PMH significant for hypertension, ASCVD / PAD and hypothyroidism who presents to ED complaining of elevated BP and headache.
Hypertensive Urgency
- Observe overnight for further evaluation and treatment.
- Persistent BP elevation accompanied by headache and (now resolved) blurry vision.
- Review of home logs and prior values here indicate long history of labile hypertension / poor control with frequent systolic BPs in the 190-200 range.
- Continue current home regimen including newly increased labetalol.
- Add amlodipine.
- IV hydralazine PRN very high BP.
- Monitor for any new / worsening symptoms.
- Pursue pain control for headache and follow for impact on BP.
ASCVD / PAD
- Stable. Continue ASA, statin, etc.
Symptomatic Bradycardia s/p PPM Placement
- Currently in A-paced rhythm.
- No complaints of chest pain, dyspnea.
Seizure Disorder
- Stable. No seizure activity in many years.
- Continue current AED regimen with no changes.
- Note that Vimpat is to be brand only.
Hypothyroidism
- Continue current T4 replacement.
Hyperparathyroidism
- Recent calcium levels have been on the lower side.
- Decrease cinacalcet to once daily and continue to follow.
Anxiety / Depression
SDAT
- Stable. Certainly does not have obvious memory impairment / dementia.
- Continue Lexapro.
History of DVT
DVT Prophylaxis
- Continue low-dose Xarelto
Code Status: Full
[2024-11-08 03:55] LABS: Troponin I < 0.012 ng/ml
[2024-11-08 06:46] LABS: Hematocrit 44.5 % (37.0-47.0); Hemoglobin 14.2 g/dL (12.0-16.0); Mean Corp Hgb Conc. 31.9 g/dL (33.0-37.0); Mean Corpuscular Hgb 29.5 pg (27.0-31.0); Mean Corpuscular Volume 92.3 fL (81.0-99.0); Mean Platelet Volume 11.8 fL (7.4-10.4); Platelet Count 189 10^3/uL (130-400); Red Blood Cell Count 4.82 10^6/uL (4.20-5.40); Red Cell Dist. Width 13.2 % (11.5-14.5); White Blood Cell Count 7.5 10^3/uL (4.8-10.8)
[2024-11-08 06:49] LABS: Urine Albumin Negative (Neg - Trace); Urine Bilirubin Negative (Negative); Urine Character Clear (Clear); Urine Color Yellow; Urine Glucose Negative (Negative); Urine Ketone Negative (Negative); Urine Leukocyte Negative (Negative); Urine Nitrite Negative (Negative); Urine Occult Blood Negative (Negative); Urine Urobilinogen Negative (Neg - 1+)
[2024-11-08 07:07] LABS: Blood Urea Nitrogen 13 mg/dl (7-17); Calcium 8.7 mg/dl (8.4-10.2); Carbon Dioxide 31 mmol/L (22-30); Chloride 101 mmol/L (98-107); Estimated Creatinine Clearance 65 ml/min; Glucose 105 mg/dl (70-99); Potassium 3.9 mmol/L (3.5-5.1); Sodium 142 mmol/L (135-145); eGFR > 60.00
[2024-11-08 07:11] LABS: Troponin I < 0.012 ng/ml
--- NOTE | 2024-11-08 09:02 | PTOTSP ---
Patient is independent with all functional mobility and is at her functional baseline. No skilled PT needs, will sign off.
[2024-11-08] MEDS: NORVASC 5 MG PO (09:30)
[2024-11-08] MEDS: ASPIR LOW (ENTERIC COATED) 81 MG PO (09:30)
[2024-11-08] MEDS: XARELTO 2.5 MG PO ×2 (09:31→20:36)
[2024-11-08] MEDS: TRANDATE 300 MG PO ×2 (09:31→20:20)
[2024-11-08] MEDS: LEXAPRO 20 MG PO (09:31)
[2024-11-08] MEDS: COZAAR 50 MG PO ×2 (09:32→18:15)
[2024-11-08] MEDS: SENSIPAR 30 MG PO (09:32)
[2024-11-08] MEDS: VIMPAT 100 MG PO ×2 (09:33→20:20)
[2024-11-08] MEDS: PROTONIX 40 MG PO (09:33)
[2024-11-08] MEDS: BRIVIACT 50 MG PO ×2 (09:51→21:16)
--- NOTE | 2024-11-08 13:14 | W.PN.HOSP.TC ---
Today's Communication/Plan
-
Monitor vitals
See plan
Continue to monitor blood pressure closely, continue labetalol, losartan, change amlodipine to nifedipine
Discussed with daughter over the phone
Nonbillable note
Assessment / Plan
Assessment / Plan
General: Other (84y F in no acute distress.)
HEENT: Moist mucous membranes and PERRLA
Respiratory: Clear; No Wheezes, Rales or Rhonchi
Cardiac: S1/S2 and Regular Rhythm; No Murmur
GI: Soft, Non Tender, Non Distended and Normal Bowel Sounds
Musculoskeletal: No Clubbing, No Cyanosis and No Edema
Neuro: Nonfocal/grossly intact
Hypertensive Urgency
- Persistent BP elevation accompanied by headache and (now resolved) blurry vision.
- Review of home logs and prior values here indicate long history of labile hypertension / poor control with frequent systolic BPs in the 190-200 range.
- Continue current home regimen including newly increased labetalol.
- Added amlodipine.
- IV hydralazine PRN very high BP.
- Monitor for any new / worsening symptoms.
- Pursue pain control for headache and follow for impact on BP.
Advised patient to check her blood pressure twice daily and follow-up with primary care provider and cardiology for medication titration.
Currently on labetalol, Cozaar. Switch amlodipine to nifedipine
ASCVD / PAD
- Stable. Continue ASA, statin, etc.
Symptomatic Bradycardia s/p PPM Placement
- Currently in A-paced rhythm.
- No complaints of chest pain, dyspnea.
Seizure Disorder
- Stable. No seizure activity in many years.
- Continue current AED regimen with no changes.
- Note that Vimpat is to be brand only.
Hypothyroidism
- Continue current T4 replacement.
Hyperparathyroidism
- Recent calcium levels have been on the lower side.
- Decrease cinacalcet to once daily and continue to follow.
Anxiety / Depression
SDAT
- Stable. Certainly does not have obvious memory impairment / dementia.
- Continue Lexapro.
History of DVT
DVT Prophylaxis
- Continue low-dose Xarelto
Code Status: Full
Anticipated Discharge: Within 24 hours
Subjective/Interval History
-
Date of Service: November 08, 2024
denies pain
Objective Data
-
Labs:
Laboratory Results
11/08/24 11/08/24 11/08/24
01:04 01:45 06:31
WBC 7.5
Hgb 14.2
Hct 44.5
Plt Count 189
Sodium Cancelled 138 142
Potassium Cancelled 3.7 3.9
Chloride Cancelled 101 101
Carbon Dioxide Cancelled 30 31 H
BUN Cancelled 15 13
Creatinine Cancelled 0.7 0.7
Glucose Cancelled 103 H 105 H
Calcium Cancelled 8.2 L 8.7
Total Bilirubin Cancelled 0.7
AST Cancelled 22
ALT Cancelled 29
Alkaline Phosphatase Cancelled 122
Vital Signs:
Vital Signs
Temp Pulse Resp BP Pulse Ox
98.4 F 62 16 152/68 97
11/07/24 22:53 11/08/24 09:29 11/08/24 09:29 11/08/24 09:29 11/08/24 00:00
--- NOTE | 2024-11-08 13:31 | CM ---
Chart reviewed. Patient here for HTN urgency. She is from [facility]. She lives one in a stud apartment. She is slightly forgetful. She drives. She owns a walker and cane. Independent. She has 2 daughters, who are involved, and live locally. She
has an active PCP and pharmacy. Retired. No +SDOHs. Obs letter was explained to patient. She verbalized understanding and signed. Copy of [facility] given to patient.
ANTICIPATED DISCHARGE DISPOSITION: Discharge back to assisted living, once medically cleared.
[2024-11-08] MEDS: PROCARDIA XL (EXTENDED RELEASE) 30 MG PO (14:14)
--- NOTE | 2024-11-08 18:12 | PTCARENOTE ---
pt arrived on unit, walked from stretcher to bed. VS WNL, placed on tele. call rai within reach. will continue to monitor
[2024-11-08] MEDS: LIPITOR 80 MG PO (21:16)
[2024-11-09 03:00] VITALS: BP 148/57
[2024-11-09] MEDS: SYNTHROID 125 MCG PO (05:22)
[2024-11-09 06:42] LABS: % Basophils 0.4 % (0-2); % Eosinophils 1.6 % (0-6); % Immature Granulocytes 0.7 % (0-0.5); % Lymphocytes 26.8 % (20.5-51.1); % Monocytes 8.9 % (1.7-9.3); % Neutrophils 61.6 % (42.2-75.2); Absolute Eosinophils 0.1 10^3/uL (0-0.7); Absolute Immature Granulocytes 0.1 10^3/uL (0-0.05); Absolute Lymphocytes 1.9 10^3/uL (1.2-3.4); Absolute Monocytes 0.6 10^3/uL (0.1-0.6); Absolute Neutrophils 4.4 10^3/uL (1.4-6.5); Hematocrit 40.3 % (37.0-47.0); Hemoglobin 12.8 g/dL (12.0-16.0); Mean Corp Hgb Conc. 31.8 g/dL (33.0-37.0); Mean Corpuscular Hgb 29.6 pg (27.0-31.0); Mean Corpuscular Volume 93.3 fL (81.0-99.0); Mean Platelet Volume 11.9 fL (7.4-10.4); Nucleated Red Blood Cells % 0 %; Platelet Count 169 10^3/uL (130-400); Red Blood Cell Count 4.32 10^6/uL (4.20-5.40); Red Cell Dist. Width 13.2 % (11.5-14.5); White Blood Cell Count 7.1 10^3/uL (4.8-10.8)
[2024-11-09 07:02] LABS: Blood Urea Nitrogen 17 mg/dl (7-17); Calcium 8.8 mg/dl (8.4-10.2); Carbon Dioxide 30 mmol/L (22-30); Chloride 103 mmol/L (98-107); Estimated Creatinine Clearance 65 ml/min; Glucose 106 mg/dl (70-99); Sodium 140 mmol/L (135-145); eGFR > 60.00
[2024-11-09 08:36] VITALS: BP 142/54
[2024-11-09] MEDS: VIMPAT 100 MG PO (08:58)
[2024-11-09] MEDS: XARELTO 2.5 MG PO (08:58)
[2024-11-09] MEDS: ASPIR LOW (ENTERIC COATED) 81 MG PO (08:58)
[2024-11-09] MEDS: PROTONIX 40 MG PO (08:58)
[2024-11-09] MEDS: PROCARDIA XL (EXTENDED RELEASE) 30 MG PO (08:58)
[2024-11-09] MEDS: TRANDATE 300 MG PO (08:58)
[2024-11-09] MEDS: SENSIPAR 30 MG PO (08:58)
[2024-11-09] MEDS: BRIVIACT 50 MG PO (08:58)
[2024-11-09] MEDS: COZAAR 50 MG PO (08:59)
[2024-11-09] MEDS: LEXAPRO 20 MG PO (08:59)
[2024-11-09 11:31] VITALS: BP 130/54
--- NOTE | 2024-11-09 12:08 | W.PN.HOSP.TC ---
Today's Communication/Plan
-
Monitor vital signs
see plan
Discussed with daughter over the phone, discharge today
Will need to check blood pressure twice daily
Continue with labetalol, losartan and nifedipine
Time of discharge 36 minutes
Assessment / Plan
Assessment / Plan
General: Other (84y F in no acute distress.)
HEENT: Moist mucous membranes and PERRLA
Respiratory: Clear; No Wheezes, Rales or Rhonchi
Cardiac: S1/S2 and Regular Rhythm; No Murmur
GI: Soft, Non Tender, Non Distended and Normal Bowel Sounds
Musculoskeletal: No Clubbing, No Cyanosis and No Edema
Neuro: Nonfocal/grossly intact
Hypertensive Urgency
- Persistent BP elevation accompanied by headache and (now resolved) blurry vision.
- Review of home logs and prior values here indicate long history of labile hypertension / poor control with frequent systolic BPs in the 190-200 range.
- Continue current home regimen including newly increased labetalol.
- Added amlodipine.
- IV hydralazine PRN very high BP.
- Monitor for any new / worsening symptoms.
- Pursue pain control for headache and follow for impact on BP.
Advised patient to check her blood pressure twice daily and follow-up with primary care provider and cardiology for medication titration.
Currently on labetalol, Cozaar. Switched amlodipine to nifedipine. Blood pressure now much better. Patient currently denies any chest pain, headache.
ASCVD / PAD
- Stable. Continue ASA, statin, etc.
Symptomatic Bradycardia s/p PPM Placement
- Currently in A-paced rhythm.
- No complaints of chest pain, dyspnea.
Seizure Disorder
- Stable. No seizure activity in many years.
- Continue current AED regimen with no changes.
- Note that Vimpat is to be brand only.
Hypothyroidism
- Continue current T4 replacement.
Hyperparathyroidism
- Recent calcium levels have been on the lower side.
- Decrease cinacalcet to once daily and continue to follow.
Anxiety / Depression
SDAT
- Stable. Certainly does not have obvious memory impairment / dementia.
- Continue Lexapro.
History of DVT
DVT Prophylaxis
- Continue low-dose Xarelto
Code Status: Full
Anticipated Discharge: Today
Subjective/Interval History
-
Date of Service: November 09, 2024
Denies headache
Objective Data
-
Labs:
Laboratory Results
11/09/24
06:19
WBC 7.1
Hgb 12.8
Hct 40.3
Plt Count 169
Sodium 140
Potassium 4.0
Chloride 103
Carbon Dioxide 30
BUN 17
Creatinine 0.7
Glucose 106 H
Calcium 8.8
Vital Signs:
Vital Signs
Temp Pulse Resp BP Pulse Ox
97.6 F 66 18 130/54 93
11/09/24 11:31 11/09/24 11:31 11/09/24 11:31 11/09/24 11:31 11/09/24 11:31
I&O
11/08/24 11/09/24 11/10/24
06:59 06:59 06:59
Intake Total 240 / 240 480 / 480
Balance 240 / 240 480 / 480
--- NOTE | 2024-11-09 12:20 | W.DCSUMMARY ---
Discharge Summary
Discharge Data
Date of Admission: 11/08/24
Date of Discharge: 11/09/24
-
Pending Results: No
Hospital Course
84-year-old female with past medical history of symptomatic bradycardia status post pacemaker placement, seizure disorder, hypothyroidism, hyperparathyroidism, anxiety/depression, DVT, hypertension came to the hospital with hypertensive urgency.
Patient blood pressure medication was titrated along with addition of nifedipine. Her labetalol was also increased recently. Over time patient blood pressure continued to improve and subsequently her symptoms started to get better. Once her blood
pressure continued to improve, she was then discharged home with instructions to follow-up with all her physicians outpatient. On discharge she was instructed to check her blood pressure twice daily.
Discharge Plan
-
Patient Disposition: Other
Discharge Diagnosis/Procedures: Hypertensive Urgency
Diet: As tolerated
Activity: As tolerated
Driving Restrictions: As prior to admission
Bathing Restrictions: None
Activity Restrictions/Additional Instructions:
Please check your blood pressure twice daily. Once in the morning and Once in the evening
Referrals:
Sharmin Mendez MD [Family Provider] - in less than 1 week
Prescriptions:
New
nifedipine 30 mg Tablet Extended Release
30 mg PO DAILY Qty: 30 0RF
Continued
aspirin 81 MG tablet,delayed release (DR/EC)
81 mg PO DAILY
pantoprazole 40 MG tablet,delayed release (DR/EC)
40 mg PO DAILY
escitalopram oxalate 10 MG tablet
20 mg PO DAILY
Briviact 50 MG tablet
50 mg PO BID
Xarelto 2.5 mg Tablet
2.5 mg PO BID
atorvastatin 80 mg tablet
80 mg PO HS
acetaminophen 325 mg Tablet
650 mg PO Q4HPRN PRN (Reason: mild pain/SERRANO/temp> 100.4F) Qty: 60 0RF
therapeutic multivitamin Tablet
1 tab PO DAILY
labetalol 300 mg Tablet
300 mg PO BID
Mucinex Fast-Max Cold-Flu 2-72-926-200 mg Tablet
2 tab PO Q4HPRN PRN (Reason: cough/congestion)
cholecalciferol (vitamin D3) [Vitamin D3] 50 mcg (2,000 unit) Tablet
50 mcg PO DAILY
lacosamide [Vimpat] 100 mg Tablet
100 mg PO BID
levothyroxine 125 mcg Tablet
125 mcg PO SUTUWETHFRSA
Changed
losartan 50 mg Tablet
50 mg PO BID Qty: 0 0RF
cinacalcet 30 mg Tablet
30 mg PO DAILY Qty: 60 0RF
Discharge Orders:
Discharge Patient (As Directed); Ordered 11/09/24
Ordered By: Ty Nieto
Discharge Date and Time
Discharge Date/Time: 11/09/24 14:50
Print Language: ESTONIAN
--- NOTE | 2024-11-09 12:59 | CM ---
Received notification that patient is cleared for discharge. Met with patient who expressed no concerns and stated that her daughter will bring her back to Independent Living at [facility].
Plan: Case management will continue to follow and assist with discharge planning. Back to [place] at [facility].
== END 2024-11-09 14:50 | disposition home or self-care (01) ==
LOC: 3 WEST ACU 03:03
PROVIDERS: Nurse Practitioner; ADMITTING PHYSICIAN Hospitalist; ATTENDING PHYSICIAN Internal Medicine; EMERGENCY PHYSICIAN Emergency Medicine; FAMILY PHYSICIAN Family Medicine
DX: I16.0 Hypertensive urgency (principal); R51.9 Headache, unspecified; I10 Essential (primary) hypertension; G30.9 Alzheimer's disease, unspecified; F02.A4 Dementia in other diseases classified elsewhere, mild, with anxiety; F32.A Depression, unspecified; G47.33 Obstructive sleep apnea (adult) (pediatric); E21.3 Hyperparathyroidism, unspecified; G40.909 Epilepsy, unspecified, not intractable, without status epilepticus; I25.10 Atherosclerotic heart disease of native coronary artery without angina pectoris; I45.10 Unspecified right bundle-branch block; R00.1 Bradycardia, unspecified; R10.9 Unspecified abdominal pain; E03.9 Hypothyroidism, unspecified; E78.5 Hyperlipidemia, unspecified; K21.9 Gastro-esophageal reflux disease without esophagitis; F02.A3 Dementia in other diseases classified elsewhere, mild, with mood disturbance; Z87.891 Personal history of nicotine dependence; Z95.0 Presence of cardiac pacemaker; Z79.82 Long term (current) use of aspirin; Z86.718 Personal history of other venous thrombosis and embolism; Z90.49 Acquired absence of other specified parts of digestive tract; Z88.8 Allergy status to other drugs, medicaments and biological substances; Z88.0 Allergy status to penicillin; Z91.013 Allergy to seafood; Z60.2 Problems related to living alone
CPT/HCPCS: 80048; 80053; 81003; 84484; 85025; 85027; 93005; 97165; 99285; G0378

== ENCOUNTER 2025-11-11 14:37 | Inpatient (IN) | payer MEDICARE, OTHER, SELFPAY ==
[2025-11-11] VITALS (10 sets, daily range): BP systolic 124–190; BP diastolic 54–91; BMI 32.9
[2025-11-11 09:36] LABS: COVID-19 Antigen Negative (Negative)
--- NOTE | 2025-11-11 10:06 | ED.GENMED ---
History of Present Illness
General
Chief Complaint: Cold/Flu/URI Symptoms
Source: patient
Exam Limitations: none
Time Seen by Provider: 11/11/25 09:54
Nursing documentation reviewed up to this point in time: agreed with
History of Present Illness
History of Present Illness:
Patient is an 85-year-old female who from assisted living presents to the ER for evaluation. She has had flulike symptoms for the past 2 days. Family reports patient is very weak. Patient complains of a headache body aches. Patient denies any
actual shortness of breath or chest pain.
Past History
Past History
ED Past Medical History: Other (Alzheimer's dementia, migraines, seizures, hypertension, hyperlipidemia, pacemaker, GERD, hypothyroidism, sleep apnea, depression)
ED Past Surgical History: Other
Social History
Tobacco: Former smoker
Alcohol: None
Drug: None
Personal: Single
Living: other
Employment: Retired
Family History
Family History: Other
Phy Exam
General Physical Exam
General Presentation: no apparent distress
General age: appears stated age
General Skin: warm and dry
General Mental: alert
General Hydration: dry mucous membranes
Cardiovascular Exam
Cardiovascular Exam: regular rate/rhythm, no murmur and normal peripheral pulses
Pulmonary Exam
Pulmonary Exam: lungs clear and no respiratory distress
Neurological Exam
Neurological Exam: alert and oriented x3
Musculoskeletal Exam
Musculoskeletal Exam: full ROM
Skin Exam
Skin Exam: normal color and warm/dry
Psychiatric Exam
Psychiatric Exam: normal mood/affect
Course
Orders/Labs/Results
Orders:
Orders
11/11/25 09:05
COVID-19 Antigen Urgent
Source: Nasal Swab
Influenza A+B Rapid Molecular Urgent
EDIS Source: Nasal Swab
Specimen Description:
11/11/25 Lunch
Cholesterol Lowering
Cholesterol Lowering: Sodium, 2 Gram
11/11/25 10:21
0.9% Sodium Chloride 500 ml [Nss] 500 ml IV BOLUS
11/11/25 10:22
Chest [CR Chest - 2 Views ] Urgent
Comment:
Reason For Exam: cough
11/11/25 10:23
Oseltamivir Phosphate [Tamiflu] 75 mg PO NOW STA
11/11/25 11:37
Complete Blood Count/With Diff Urgent
Comprehensive Metabolic Panel Urgent
11/11/25 11:47
Acetaminophen [Tylenol] 650 mg PO NOW STA
11/11/25 11:48
Acetaminophen [Tylenol] 650 mg .ROUTE .STK-MED ONE
11/11/25 11:55
Electrocardiogram (*1) Stat
Reason for Study: Other
Other Reason for Exam: chest pain
EKG- Treatment ONCE
Ondansetron Injectable [Zofran] 4 mg .ROUTE .STK-MED ONE
Ondansetron Injectable [Zofran] 4 mg IV NOW STA
11/11/25 12:45
Ipratropium/Albuterol Sulfate [Duoneb] 3 ml INH R NOW STA
11/11/25 13:44
Admit Patient As Directed
Co-Sign Provider:
Level of Care: Inpatient admission
Assign to:: Medical/Surgical
Physician / Group:
Diagnosis: Influenza A
Reason for Hospitalization: Influenza A
Expected length of stay greater than two midnights?: Yes
ELOS- Estimated Length of Stay in days: 3
I certify the patient meets the requirements for IP care: Yes
Code Status As Directed
Resuscitation Status: Full Code
Acetaminophen [Tylenol] 650 mg PO Q4HPRN PRN
Bisacodyl [Dulcolax] 10 mg RECTAL [id number] PRN
Docusate W/Senna [Senokot-S] 1 tablet PO BIDPRN PRN
Polyethylene Glycol Powder [Miralax] 17 grams PO DAILYPRN PRN
PRN Pain Medication Management As Directed
May give lesser potent ordered pain med per pt: Yes
preference::
Protocol:: Medication orders for pain may be administered in a
manner that supports deferring to patient preference
when the pt is:
- Requesting an ordered lesser potent pain medication.
Least to most potent pain medications are defined
as: acetaminophen < NSAID < tramadol < opioids
(morphine, oxycodone, hydromorphone).
- Requesting a lesser dose of the same medication IF
ORDERED.
- Requesting a less intrusive route of administration
if both routes are prescribed by the provider (PO <
IV).
11/11/25 13:45
0.9% Sodium Chloride 1000 ml [Nss] 1,000 ml IV 100 mls/hr
Activity As Directed
Activity Level: As Tolerated
Pneumatic Compression Sleeves As Directed
Type: Knee high
Vital Signs As Directed
Frequency: Per unit guidelines
DX Deep Vein Thrombosis Video Routine
11/11/25 13:58
Oxygen Therapy [O2 Therapy] [RESP] Routine
Titrate/Wean O2 to maintain O2 sat greater than (%): 94
11/11/25 14:00
Cinacalcet HCl [Sensipar] 30 mg PO DAILY
Dexamethasone Sod Phosphate [Decadron] 4 mg IV Q6H
Levothyroxine [Synthroid] 125 mcg PO SUTUWETHFRSA
NIFEdipine EXTENDED RELEASE [Procardia Xl (Extended Release)] 30 mg PO DAILY
11/11/25 14:02
HydrALAZINE [Apresoline] 10 mg IV Q6HPRN PRN
11/11/25 14:05
Labetalol [Trandate] 200 mg PO BID
Losartan [Cozaar] 50 mg PO BID
11/11/25 14:07
Admit/Transfer Patient As Directed
Co-Sign Provider:
Level of Care: Inpatient admission
Assign to:: Medical/Surgical
Physician / Group:
Diagnosis: Influenza A
Reason for Hospitalization: Influenza A
Expected length of stay greater than two midnights?: Yes
ELOS- Estimated Length of Stay in days: 3
I certify the patient meets the requirements for IP care: Yes
11/11/25 14:10
PRN Pain Medication Management As Directed
May give lesser potent ordered pain med per pt: Yes
preference::
Protocol:: Medication orders for pain may be administered in a
manner that supports deferring to patient preference
when the pt is:
- Requesting an ordered lesser potent pain medication.
Least to most potent pain medications are defined
as: acetaminophen < NSAID < tramadol < opioids
(morphine, oxycodone, hydromorphone).
- Requesting a lesser dose of the same medication IF
ORDERED.
- Requesting a less intrusive route of administration
if both routes are prescribed by the provider (PO <
IV).
11/11/25 15:00
Aspirin Low Dose EC [Aspir Low (Enteric Coated)] 81 mg PO DAILY
11/11/25 16:00
Ipratropium/Albuterol Sulfate [Duoneb] 3 ml INH R QID
11/11/25 20:00
Brivaracetam [Briviact] 50 mg PO BID
Lacosamide [Vimpat] 100 mg PO BID
Rivaroxaban [Xarelto] 2.5 mg PO BID
11/11/25 22:00
Atorvastatin [Lipitor] 80 mg PO HS
11/12/25 06:00
Complete Blood Count/With Diff IN AM
Comprehensive Metabolic Panel IN AM
11/12/25 08:00
Cholecalciferol (Vitamin D3) [VITAMIN D3 (cholecalciferol)] 50 mcg PO DAILY
Escitalopram Oxalate [Lexapro] 20 mg PO DAILY
Multivitamin [Theragran] 1 tablet PO DAILY
Oseltamivir Phosphate [Tamiflu] 75 mg PO DAILY
Pantoprazole [Protonix] 40 mg PO DAILY
11/13/25 06:00
Complete Blood Count/With Diff IN AM
Comprehensive Metabolic Panel IN AM
11/14/25 06:00
Complete Blood Count/With Diff IN AM
Comprehensive Metabolic Panel IN AM
Abnormal Lab Results
11/11/25
11:37
WBC 11.1 H 10^3/uL
(4.8-10.8)
MPV 12.5 H fL
(7.4-10.4)
Abs Immat Gran (auto) 0.1 H 10^3/uL
(0-0.05)
Absolute Neuts (auto) 9.2 H 10^3/uL
(1.4-6.5)
Absolute Lymphs (auto) 0.6 L 10^3/uL
(1.2-3.4)
Absolute Monos (auto) 1.1 H 10^3/uL
(0.1-0.6)
Immature Gran % 0.8 H %
(0-0.5)
Neutrophils % 82.7 H %
(42.2-75.2)
Lymphocytes % 5.8 L %
(20.5-51.1)
Monocytes % 10.1 H %
(1.7-9.3)
Glucose 125 H mg/dl
(70-99)
11/11/25 11:37
11/11/25 11:37
Vital Signs
Initial and Last Documented VS:
Initial Vital Signs
Temp Pulse Resp BP Pulse Ox
99.1 F 85 20 146/91 94
11/11/25 09:00 11/11/25 09:00 11/11/25 09:00 11/11/25 09:00 11/11/25 09:00
Last Documented Vital Signs
Temp Pulse Resp BP Pulse Ox
98.7 F 76 19 157/67 98
11/11/25 15:06 11/11/25 15:06 11/11/25 15:06 11/11/25 15:06 11/11/25 15:06
MDM/Problems Addressed
Differential Diagnosis Includes:
Not limited to influenza, COVID, viral syndrome, pneumonia
MDM/Problems Addressed:
Patient patient is an 85-year-old female presents with weakness flulike symptoms for the past 2 days. She is positive for influenza. She has not been eating or drinking. Patient was ordered IV Toradol fluids. Patient's white count minimally
elevated initial temp was 99.1 she is now afebrile to 98.4. Chemistry is unremarkable. While here patient had an episode of vomiting. Pt did desaturate however denied difficulty breathing . On exam she had mild exp wheezing . Patient was eval
by ED physician patient was given DuoNeb and placed on mid flow. Will require admission for weakness / hypoxia .
Chronic conditions affecting care:
Early dementia CHF hypertension hyperlipidemia pacemaker
*Radiology
Radiology exam reviewed: preliminary read by ED provider and radiology read reviewed
*Pulse Oximetry
SaO2: 94
Oxygen Mode of Delivery: Room air
Patient hypoxic: yes
*Critical Care Note
Total Time (30-74mins, 75-104mins- exclusive of procedures): Not Applicable
ED Attending Note
-
Portions of this chart may have been created with voice recognition software.� Occasional wrong word or��sound alike� substitutions may have occurred due to the inherent limitations of voice recognition software.
Discharge Plan
Departure
Patient Disposition: Admit
Date of Disposition: 11/11/25
Time of Disposition: 13:11
Admit to: Telemetry
Admit to doctor: hospitalist
Presentation/result/management discussed w/ accepting MD/DO: Hospitalist
Patient with high blood pressure during this ER visit?: Yes
Condition: Fair
Covid-19: Not Applicable
Discharge Problem:
Influenza, hypoxia
Interventions
Interventions:
*General Assessment Last Done: 11/11/25 09:00
*Neglect/Abuse Screening Last Done: 11/11/25 09:00
*ED COVID-19 Vaccine History Last Done: 11/11/25 12:25
*ED Influenza Vaccine History Last Done: 11/11/25 12:25
[facility] Fall Risk Assessment Tool Last Done: 11/11/25 08:59
*Risk Screen - Suicide (C-SSRS) Last Done: 11/11/25 15:05
*Nursing Disposition Last Done: 11/11/25 15:05
ED- Pulmonary Assessment Last Done: 11/11/25 12:25
[2025-11-11] MEDS: TAMIFLU 75 MG PO ×2 (11:34→21:47)
[2025-11-11] MEDS: NSS 500 IV (11:34)
[2025-11-11] MEDS: TYLENOL 650 MG PO ×2 (11:50→17:25)
[2025-11-11] MEDS: ZOFRAN 4 MG IV (11:58)
[2025-11-11 12:17] LABS: Hematocrit 41.8 % (37.0-47.0); Hemoglobin 14.0 g/dL (12.0-16.0); Mean Corp Hgb Conc. 33.5 g/dL (33.0-37.0); Mean Corpuscular Volume 88.9 fL (81.0-99.0); Nucleated Red Blood Cells % 0 %; Platelet Count 157 10^3/uL (130-400); Red Cell Dist. Width 13.2 % (11.5-14.5)
[2025-11-11 12:36] LABS: ALT (SGPT) 26 U/L (0-35); AST (SGOT) 23 U/L (14-36); Albumin 4.4 g/dl (3.5-5.0); Alkaline Phosphatase 116 U/L (38-126); Blood Urea Nitrogen 13 mg/dl (7-17); Calcium 8.7 mg/dl (8.4-10.2); Carbon Dioxide 28 mmol/L (22-30); Chloride 99 mmol/L (98-107); Estimated Creatinine Clearance 79 ml/min; Glucose 125 mg/dl (70-99); Potassium 3.9 mmol/L (3.5-5.1); Sodium 135 mmol/L (135-145); Total Protein 7.2 g/dl (6.3-8.2); eGFR > 60.00
[2025-11-11] MEDS: DUONEB 3 ML INH (12:48)
--- NOTE | 2025-11-11 13:13 | HPS.HSE ---
Family Physician
-
Family Physician: Sharmin Mendez
Chief Complaint
-
URI, weakness
History of Present Illness
This is an 85 year old female patient has medical history of Hx of seizures, Hx of DVT on Xarelto, hypothyroidism, Hx of hyperparathyroidism, PAD and HTN presenting to the hospital from assisted living in [place] for concerns of cough. She
states that she started having symptoms 2 days ago with a dry cough, rhinorrhea. She states that this was associated with a sore throat and low-grade fever but she does not remember exact temperature. She then started to experience body aches.
She normally uses a walker at home and has recently received a flu shot.
Medical History
Past Medical History
Past Medical History: Reports Other
Additional Past Medical History:
ASCVD / PAD
Seizure Disorder (last seizure several years ago)
Hypothyroidism
Hyperparathyroidism
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
JASON
Alzheimer's Dementia (very mild)
History of DVT
Past Surgical History: Reports Other
Additional Past Surgical History:
Right NIKKI
PPM Placement
Bilateral LE Arterial Stents
Cholecystectomy
Hysterectomy
Social History
Tobacco: Former Smoker (Quit smoking in 1991. Approx 30 pack years total use.)
Alcohol: None
Drug: None
Family History
Family History: Not pertinent
Allergies / Home Medications
Allergies reflects when Allergies were last updated in [facility].
Home Medications with original date entered in [facility]
Allergy/Medication List:
Allergies
Allergy/AdvReac Type Severity Reaction Status Date / Time
amoxicillin Allergy Intermediate Unknown Verified 11/11/25 09:03
shellfish derived Allergy Intermediate Nausea / Verified 11/11/25 09:03
Vomiting
lacosamide Allergy Unknown Cannot Verified 11/11/25 09:03
have
generic
form, only
brand name
Home Medications
aspirin 81 mg tablet,delayed release 81 mg PO DAILY Blood Clot Prevention/Tx 10/20/20
brivaracetam 50 mg tablet (Briviact) 50 mg PO BID Seizures 10/20/20
pantoprazole 40 mg tablet,delayed release 40 mg PO DAILY Gastrointestinal Issue 10/20/20
rivaroxaban 2.5 mg tablet (Xarelto) 2.5 mg PO BID Blood Clot Prevention/Tx 03/08/23
atorvastatin 80 mg tablet 80 mg PO HS High Cholesterol 12/09/23
cholecalciferol (vitamin D3) 50 mcg (2,000 unit) tablet (Vitamin D3) 50 mcg PO DAILY Supplement 11/07/24
lacosamide 100 mg tablet (Vimpat) 100 mg PO BID Seizures 11/07/24
levothyroxine 125 mcg tablet 125 mcg PO SUTUWETHFRSA Thyroid 11/07/24
therapeutic multivitamin 1 tab PO DAILY Supplement 11/07/24
cinacalcet 30 mg tablet 30 mg PO DAILY #60 tabs 11/09/24
losartan 50 mg tablet 50 mg PO BID Blood Pressure #0 tabs 11/09/24
nifedipine 30 mg tablet,extended release 30 mg PO DAILY #30 tabs 11/09/24
escitalopram oxalate 20 mg tablet (Lexapro) 20 mg PO DAILY 11/11/25
labetalol 200 mg tablet 200 mg PO BID 11/11/25
Review of Systems
-
A 12 point ROS was completed and negative except as noted: Yes
Respiratory: Reports Cough
Physical Exam
Vital Signs
Vital Signs
Temp Pulse Resp BP Pulse Ox
98.4 F 90 19 172/73 99
11/11/25 12:01 11/11/25 12:54 11/11/25 12:54 11/11/25 13:00 11/11/25 13:00
Physical Exam
General: Conversant and Obese
HEENT: NormoCephalic
Respiratory: Wheezes (mild generalized ) and Non Labored Respirations
Cardiac: S1/S2 and Regular Rhythm
GI: Soft, Non Tender and Non Distended
Musculoskeletal: No Clubbing and No Cyanosis
Skin: Warm and Dry
Neuro: Awake, Alert and Oriented
Psych: Calm
Laboratory Results
-
11/11/25 11:37
11/11/25 11:37
Laboratory Results
Total Bilirubin 1.1 mg/dl (0.2-1.3) 11/11/25 11:37
AST 23 U/L (14-36) 11/11/25 11:37
ALT 26 U/L (0-35) 11/11/25 11:37
Alkaline Phosphatase 116 U/L (38-126) 11/11/25 11:37
Impression/Plan
-
IMPRESSION:This is an 85 year old female patient has medical history of Hx of seizures, Hx of DVT on Xarelto, hypothyroidism, Hx of hyperparathyroidism, PAD and HTN presenting to the hospital from assisted living in [place] for concerns of cough,
bodyaches and fatigue.
PLAN:
#Acute viral infection (Influenza A) complicated by acute asthmatic bronchitis
- afebrile at this time
-wbc mildly elevated at 11.1
- tested positive for influenza A
- CXR : No acute cardiopulmonary process.
- continue mid-flow nasal canula and wean as tolerated
- start IVF
- start IV decadron 4mg
- start Tamiflu for 7 days
- Duonebs as needed
#Essential HTN
- continue home meds of losartan, labetalol, and nifidepine
#hypothyroidism
- continue levothyroxine
# Hx of epilepsy
� Continue Vimpat
#GERD
� Continue pantoprazole
#History of DVT
� Continue Xarelto twice daily
#Anxiety/depression
� Continue Lexapro
#Hyperparathyroidism
� Continue cincalcet
#hx of PAD
-Continue ASA, statin
#Symptomatic Bradycardia s/p PPM Placement
Code: Full
DVT ppx: xarelto
--- NOTE | 2025-11-11 13:31 | W.PN.UPDATE ---
Update Note
Progress Note Update
This note serves as an addendum to the H&P by hook and eye attacher ROMULO�[id number]
HPI�
85F HX former smoker [place] Res of local facility recently in good health seen at ER: weakness, SERRANO and Vomiting. Noted POx marhinal low 90s , reports 59% before arrival but possible factious !
PHX: Alzheimer's dementia, migraines, seizures, hypertension, hyperlipidemia, pacemaker, GERD, hypothyroidism, sleep apnea, depression)
symptomatic bradycardia status post pacemaker placement, seizure disorder, hypothyroidism, hyperparathyroidism, anxiety/depression, DVT, hypertension
had Flu Vax this year
Reviewed VS:
11/11/25
09:00 11/11/25
12:16 11/11/25
12:26
Temp 99.1 F
Temp route: Oral
Pulse 85
Resp Rate 20
SaO2 94 96 98
Oxygen Mode of Delivery Room air Midflow Nasal
Cannula
Nasal Cannula flow liters per minute 6
PE
Gen: Not toxic, NAD, well groom
HEENT: anicteric , moist OM
Neck: supple
Lungs: non labored breathing, mild exp wheeze at base
Cor: RRR S1 S2
Abdomen:�soft NT NG
ARCHITECTURAL SALES CONSULTANT: AAO3, NF ND
MS: no edema
Psych:Nl mood and affect
Relevant Data�
Lab
11/11/25
11:37
WBC 11.1 H
Hgb 14.0
Plt Count 157
BUN 13
Creatinine 0.6
eGFR > 60.00
CXR: final report pending
EKG
SINUS RHYTHM WITH 1ST DEGREE A-V BLOCK
RIGHT BUNDLE BRANCH BLOCK
T WAVE ABNORMALITY, CONSIDER INFERIOR ISCHEMIA
ABNORMAL ECG
WHEN COMPARED WITH ECG OF 08-Nov-2024 15:14,
T WAVE INVERSION LESS EVIDENT IN LATERAL LEADS
Confirmed by MD BETHANY, LEE Bertrand ([id number]) on 11/11/2025 1:09:41 PM
Last hospitalist admission: 11/08/24 - 11/09/24
Discharge Diagnosis/Procedures: Hypertensive Urgency
ASSESSMENT & PLAN
Acute viral Flu A illness with dry cough ,aches and pain , one episodes of vomiting . No diarrhea or abdominal pain
Onset 2 days ago
- Initiate Tamiflu
- Supportive care with IVF , PRN Tylenol
Associated acute asthmatic bronchitis due to acute viral Flu
- IV Decadron 4 mg BID
- DuoNeb QID and PRN
- O2 to keep POx above 94 - please titrate
- FU CXR final report
Uncontrol HTN - she missed all evening dose of BP Meds
HX MDR pHTN
- one time dose of Losartan at ER
- c/w LIBERAL ARTS DEAN Nifedipine
- c/w Labetalol
- IV Hydralazine 10mg q6H PRN for SBP > 165, DBP > 110
- No prior HX ECHO in [facility]
HLD
- stable
- on LIBERAL ARTS DEAN Atorvastatin and ASA
HX Sz disorder
- c/w LIBERAL ARTS DEAN Briviact and lacosamide
Depression - stable
- c/w LIBERAL ARTS DEAN Escitalopram
Hypothyroid
- c/w LIBERAL ARTS DEAN LT4
HX DVT
- on chr Xarelto
DVT Px: LIBERAL ARTS DEAN Xarelto
Full
IP MS
--- NOTE | 2025-11-11 14:33 | CM ---
Addendum entered by Inez Vizcaino 11/11/25 14:37:
Call with Marnie FRANCO at [facility]
She is NOT in memory care at this time
No need for report per Marnie
no SNF in the facility
Preferred [facility] vendor [facility]'s home care with [facility]
fax number [phone]
Original Note:
Chart reviewed
Spoke with agent at [facility] [phone]
Lives in [facility] memory care
hx of Alzheimer
needs assistance with ADLs and uses a RW
PCP Dr. Sharmin Mendez
meds managed by [facility]
DCP is to return back to [facility] when ready?
CM will continue to follow up with dcp needs
[2025-11-11] MEDS: NSS 1000 IV (17:25)
[2025-11-11] MEDS: SENSIPAR 30 MG PO (17:26)
[2025-11-11] MEDS: ASPIR LOW (ENTERIC COATED) 81 MG PO (17:26)
[2025-11-11] MEDS: PROCARDIA XL (EXTENDED RELEASE) 30 MG PO (17:28)
[2025-11-11] MEDS: DECADRON 4 MG IV ×2 (17:28→21:48)
--- NOTE | 2025-11-11 17:44 | PTCARENOTE ---
Pt arrived from ED at 1700. Pt was pulled over from stretcher to bed with 3 people. VSS, assessment completed with daughter at bedside, oriented to room, and PRN medication given for SERRANO, see MAR. Plan ongoing.
[2025-11-11] MEDS: COZAAR 50 MG PO (21:42)
[2025-11-11] MEDS: LIPITOR 80 MG PO (21:46)
[2025-11-11] MEDS: BRIVIACT 50 MG PO (21:46)
[2025-11-11] MEDS: TRANDATE 200 MG PO (21:46)
[2025-11-11] MEDS: VIMPAT 100 MG PO (21:47)
[2025-11-11] MEDS: XARELTO 2.5 MG PO (21:47)
[2025-11-12] MEDS: NSS 1000 IV ×3 (01:00→22:35)
[2025-11-12] MEDS: DECADRON 4 MG IV ×4 (03:03→21:34)
[2025-11-12] MEDS: SYNTHROID 125 MCG PO (05:21)
[2025-11-12 07:00] VITALS: BP 143/63
[2025-11-12 08:29] LABS: Hematocrit 37.4 % (37.0-47.0); Hemoglobin 12.7 g/dL (12.0-16.0); Mean Corp Hgb Conc. 34.0 g/dL (33.0-37.0); Mean Corpuscular Volume 88.8 fL (81.0-99.0); Nucleated Red Blood Cells % 0 %; Platelet Count 140 10^3/uL (130-400); Red Cell Dist. Width 13.2 % (11.5-14.5)
[2025-11-12] MEDS: TYLENOL 650 MG PO (08:35)
[2025-11-12] MEDS: BRIVIACT 50 MG PO ×2 (08:35→21:31)
[2025-11-12] MEDS: VIMPAT 100 MG PO ×2 (08:35→21:32)
[2025-11-12] MEDS: PROCARDIA XL (EXTENDED RELEASE) 30 MG PO (08:35)
[2025-11-12] MEDS: ASPIR LOW (ENTERIC COATED) 81 MG PO (08:36)
[2025-11-12] MEDS: VITAMIN D3 (cholecalciferol) 50 MCG PO (08:36)
[2025-11-12] MEDS: PROTONIX 40 MG PO (08:36)
[2025-11-12] MEDS: SENSIPAR 30 MG PO (08:36)
[2025-11-12] MEDS: TAMIFLU 75 MG PO ×2 (08:36→21:31)
[2025-11-12] MEDS: THERAGRAN 1 TABLET PO (08:36)
[2025-11-12] MEDS: MIRALAX 17 GRAMS PO (08:37)
[2025-11-12] MEDS: LEXAPRO 20 MG PO (08:39)
[2025-11-12] MEDS: COZAAR 50 MG PO ×2 (08:39→21:33)
[2025-11-12 09:59] LABS: ALT (SGPT) 23 U/L (0-35); AST (SGOT) 22 U/L (14-36); Albumin 3.7 g/dl (3.5-5.0); Alkaline Phosphatase 91 U/L (38-126); Blood Urea Nitrogen 14 mg/dl (7-17); Calcium 8.4 mg/dl (8.4-10.2); Carbon Dioxide 26 mmol/L (22-30); Chloride 104 mmol/L (98-107); Estimated Creatinine Clearance 79 ml/min; Glucose 149 mg/dl (70-99); Potassium 4.0 mmol/L (3.5-5.1); Sodium 137 mmol/L (135-145); Total Protein 6.3 g/dl (6.3-8.2); eGFR > 60.00
[2025-11-12] MEDS: TRANDATE 200 MG PO ×2 (10:13→21:20)
[2025-11-12] MEDS: XARELTO 2.5 MG PO ×2 (10:13→21:32)
[2025-11-12 15:37] VITALS: BP 128/49
--- NOTE | 2025-11-12 15:59 | W.PN.HOSP.TC ---
Today's Communication/Plan
-
Assessment / Plan
Assessment / Plan
Acute hypoxemic respiratory failure secondary to influenza A and asthmatic bronchitis
Tamiflu
Decadron
Wean oxygen as tolerated
Incentive spirometer
Acapella's
Nebulizers as tolerated
Hypertension
Continue antihypertensives
Hypothyroidism
Continue levothyroxine
History of epilepsy
Continue
GERD
Continue PPI
History of DVT
Continue Xarelto
Anxiety depression
Continue Lexapro
Hyperparathyroidism
Continue Cinacalcet
History of PAD
Continue aspirin statin
Anticipated Discharge: > 48 hours
Subjective/Interval History
-
Date of Service: November 12, 2025
Seen and examined. No new complaints. No acute overnight events.
Objective Data
-
Labs:
Laboratory Results
11/12/25
07:45
WBC 11.5 H
Hgb 12.7
Hct 37.4
Plt Count 140
Sodium 137
Potassium 4.0
Chloride 104
Carbon Dioxide 26
BUN 14
Creatinine 0.5 L
Glucose 149 H
Calcium 8.4
Total Bilirubin 0.6
AST 22
ALT 23
Alkaline Phosphatase 91
Vital Signs:
Vital Signs
Temp Pulse Resp BP Pulse Ox
97.4 F 73 16 128/49 95
11/12/25 15:37 11/12/25 15:37 11/12/25 15:37 11/12/25 15:37 11/12/25 15:41
I&O
11/11/25 11/12/25 11/13/25
06:59 06:59 06:59
Intake Total 480 / 480
Balance 480 / 480
Physical Exam
-
General: Well Nourished, No Apparent Distress and Comfortable
HEENT: Normocephalic and Atraumatic
Respiratory: Decreased Breath Sounds; Negative Wheezes, Rales, Rhonchi or Crackles
Cardiac: Regular Rhythm and S1/S2
GI: Soft, Nontender, Nondistended and Normal Bowel Sounds
Genito-urinary: No Costovertebral Tender and Clear Urine
Musculoskeletal: No Clubbing, No Cyanosis and No Edema
[2025-11-12] MEDS: LIPITOR 80 MG PO (21:33)
[2025-11-12 23:53] VITALS: BP 171/65
[2025-11-13] MEDS: DECADRON 4 MG IV ×2 (04:00→08:33)
[2025-11-13] MEDS: SYNTHROID 125 MCG PO (05:27)
[2025-11-13 07:57] LABS: Hematocrit 40.9 % (37.0-47.0); Hemoglobin 13.2 g/dL (12.0-16.0); Mean Corp Hgb Conc. 32.3 g/dL (33.0-37.0); Mean Corpuscular Volume 90.9 fL (81.0-99.0); Nucleated Red Blood Cells % 0 %; Platelet Count 163 10^3/uL (130-400); Red Cell Dist. Width 13.2 % (11.5-14.5)
[2025-11-13 08:16] VITALS: BP 183/66
[2025-11-13 08:27] LABS: ALT (SGPT) 24 U/L (0-35); AST (SGOT) 24 U/L (14-36); Albumin 3.7 g/dl (3.5-5.0); Alkaline Phosphatase 86 U/L (38-126); Blood Urea Nitrogen 12 mg/dl (7-17); Calcium 9.0 mg/dl (8.4-10.2); Carbon Dioxide 28 mmol/L (22-30); Chloride 105 mmol/L (98-107); Estimated Creatinine Clearance 79 ml/min; Glucose 144 mg/dl (70-99); Potassium 4.3 mmol/L (3.5-5.1); Sodium 139 mmol/L (135-145); Total Protein 6.4 g/dl (6.3-8.2); eGFR > 60.00
[2025-11-13] MEDS: TAMIFLU 75 MG PO ×2 (08:31→21:04)
[2025-11-13] MEDS: TYLENOL 650 MG PO (08:31)
[2025-11-13] MEDS: BRIVIACT 50 MG PO ×2 (08:31→21:04)
[2025-11-13] MEDS: ASPIR LOW (ENTERIC COATED) 81 MG PO (08:31)
[2025-11-13] MEDS: VIMPAT 100 MG PO ×2 (08:31→21:05)
[2025-11-13] MEDS: XARELTO 2.5 MG PO ×2 (08:31→21:04)
[2025-11-13] MEDS: TRANDATE 200 MG PO ×2 (08:31→21:04)
[2025-11-13] MEDS: PROCARDIA XL (EXTENDED RELEASE) 30 MG PO (08:31)
[2025-11-13] MEDS: SENSIPAR 30 MG PO (08:31)
[2025-11-13] MEDS: COZAAR 50 MG PO ×2 (08:32→21:05)
[2025-11-13] MEDS: THERAGRAN 1 TABLET PO (08:32)
[2025-11-13] MEDS: LEXAPRO 20 MG PO (08:32)
[2025-11-13] MEDS: VITAMIN D3 (cholecalciferol) 50 MCG PO (08:32)
[2025-11-13] MEDS: PROTONIX 40 MG PO (08:32)
--- NOTE | 2025-11-13 12:33 | CM ---
patient seen at bedside
Dx: influenza A
Spoke with daughter Helga
Patient resides at [facility] (4 yrs)
PT to eval-pending
patient on oxygen currently
daughter to confiirm Pharmacy at [facility] & get back to
PLAN: return to [facility] vs. SNF, await PT eval
--- NOTE | 2025-11-13 12:36 | W.PN.HOSP.TC ---
Today's Communication/Plan
-
Assessment / Plan
Assessment / Plan
Acute hypoxemic respiratory failure secondary to influenza A and asthmatic bronchitis
Tamiflu
Decadron, transition to prednisone
Wean oxygen as tolerated
Incentive spirometer
Acapella's
Nebulizers as tolerated
Hypertension
Continue antihypertensives
Hypothyroidism
Continue levothyroxine
History of epilepsy
Continue
GERD
Continue PPI
History of DVT
Continue Xarelto
Anxiety depression
Continue Lexapro
Hyperparathyroidism
Continue Cinacalcet
History of PAD
Continue aspirin statin
Anticipated Discharge: > 48 hours
Subjective/Interval History
-
Date of Service: November 13, 2025
Seen and examined. No new complaints. No acute overnight events.
Objective Data
-
Labs:
Laboratory Results
11/13/25
07:11
WBC 13.8 H
Hgb 13.2
Hct 40.9
Plt Count 163
Sodium 139
Potassium 4.3
Chloride 105
Carbon Dioxide 28
BUN 12
Creatinine 0.5 L
Glucose 144 H
Calcium 9.0
Total Bilirubin 0.4
AST 24
ALT 24
Alkaline Phosphatase 86
Vital Signs:
Vital Signs
Temp Pulse Resp BP Pulse Ox
97.5 F 61 15 183/66 98
11/13/25 08:16 11/13/25 08:16 11/13/25 08:16 11/13/25 08:16 11/13/25 08:16
I&O
11/12/25 11/13/25 11/14/25
06:59 06:59 06:59
Intake Total 480 / 480 960 / 960
Balance 480 / 480 960 / 960
Physical Exam
-
General: Well Developed, Well Nourished, No Apparent Distress and Comfortable
HEENT: Normocephalic and Atraumatic
Respiratory: Clear to Auscultation
Cardiac: Regular Rhythm and S1/S2
GI: Soft, Nontender, Nondistended and Normal Bowel Sounds
Genito-urinary: No Costovertebral Tender and Clear Urine
Musculoskeletal: No Clubbing, No Cyanosis, No Edema and Clubbing
Neuro: Awake and AO x 3
Psych: Calm
[2025-11-13 14:52] VITALS: BP 140/62
--- NOTE | 2025-11-13 14:54 | PTCARENOTE ---
PT alert able to tell me year and where she is at. PT admitted that her pillow talks to her and she can hear voices. I asked what they state and she said she cannot tell its muffled. She stated she was not hearing it at this time. The patient has
made several attempts to get oob by herself. She is high fall risk, bracelet on, yellow sign on door and bed alarm on. She states she cannot wait to call rai because of her severity of urgency. I did ask her to show me how she uses the call rai.
she used it appropriately.She verbalized she knew she was a very high fall risk and will try to ring next time. Currently daughter is at bedside . Pulse ox 95% on 2 liters without any SOB SIMPSON, oxygen removed and is now 93-95% on room air, again
without any respiratory distress or breathing difficulty. PT continues to not have any hallucinations at this time. Pt is fixated on the bsc being on opposite side of room. Despite 15 minutes [facility]
to [facility] her strong, she does not see value in not using the [facility] that is in the room.
[2025-11-13 16:25] VITALS: BP 143/59; PULSE 61
[2025-11-13 16:32] VITALS: BP 143/59
[2025-11-13] MEDS: LIPITOR 80 MG PO (21:05)
[2025-11-14 07:36] LABS: Hematocrit 39.5 % (37.0-47.0); Hemoglobin 12.9 g/dL (12.0-16.0); Mean Corp Hgb Conc. 32.7 g/dL (33.0-37.0); Mean Corpuscular Volume 88.8 fL (81.0-99.0); Nucleated Red Blood Cells % 0 %; Platelet Count 186 10^3/uL (130-400); Red Cell Dist. Width 13.1 % (11.5-14.5)
[2025-11-14 07:37] VITALS: BP 194/85
[2025-11-14] MEDS: DUONEB 3 ML INH (07:48)
[2025-11-14 08:07] LABS: ALT (SGPT) 38 U/L (0-35); AST (SGOT) 34 U/L (14-36); Albumin 3.7 g/dl (3.5-5.0); Alkaline Phosphatase 88 U/L (38-126); Blood Urea Nitrogen 16 mg/dl (7-17); Calcium 9.2 mg/dl (8.4-10.2); Carbon Dioxide 29 mmol/L (22-30); Chloride 101 mmol/L (98-107); Estimated Creatinine Clearance 79 ml/min; Glucose 100 mg/dl (70-99); Potassium 3.8 mmol/L (3.5-5.1); Sodium 136 mmol/L (135-145); Total Protein 6.1 g/dl (6.3-8.2); eGFR > 60.00
[2025-11-14] MEDS: PROCARDIA XL (EXTENDED RELEASE) 30 MG PO (08:46)
[2025-11-14] MEDS: THERAGRAN 1 TABLET PO (08:46)
[2025-11-14] MEDS: XARELTO 2.5 MG PO ×2 (08:46→20:22)
[2025-11-14] MEDS: PROTONIX 40 MG PO (08:46)
[2025-11-14] MEDS: SENSIPAR 30 MG PO (08:47)
[2025-11-14] MEDS: DELTASONE 40 MG PO (08:47)
[2025-11-14] MEDS: TAMIFLU 75 MG PO ×2 (08:47→20:18)
[2025-11-14] MEDS: LEXAPRO 20 MG PO (08:47)
[2025-11-14] MEDS: ASPIR LOW (ENTERIC COATED) 81 MG PO (08:47)
[2025-11-14] MEDS: TRANDATE 200 MG PO ×2 (08:47→20:23)
[2025-11-14] MEDS: VITAMIN D3 (cholecalciferol) 50 MCG PO (08:48)
[2025-11-14] MEDS: COZAAR 50 MG PO ×2 (08:48→20:18)
[2025-11-14] MEDS: VIMPAT 100 MG PO ×2 (08:50→20:22)
[2025-11-14] MEDS: BRIVIACT 50 MG PO ×2 (08:50→20:22)
--- NOTE | 2025-11-14 14:08 | W.PN.HOSP.TC ---
Addendum entered and electronically signed by Francisco J Campbell MD 11/14/25 15:25:
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
give 1 dose of zyprexa im
Original Note:
Today's Communication/Plan
-
Assessment / Plan
Assessment / Plan
General: Well Developed, Well Nourished, No Apparent Distress and Comfortable
HEENT: Normocephalic and Atraumatic
Respiratory: Clear to Auscultation
Cardiac: Regular Rhythm and S1/S2
GI: Soft, Nontender, Nondistended and Normal Bowel Sounds
Genito-urinary: No Costovertebral Tender and Clear Urine
Musculoskeletal: No Clubbing, No Cyanosis, No Edema and Clubbing
Neuro: Awake and AO x 3
Psych: Calm
Acute hypoxemic respiratory failure secondary to influenza A and asthmatic bronchitis
Tamiflu
Decadron, transition to prednisone
Wean oxygen as tolerated
Incentive spirometer
Acapella's
Nebulizers as tolerated
Antitussive/mucolytics
Home o2 assessment
Hypertension
Continue antihypertensives
Hypothyroidism
Continue levothyroxine
History of epilepsy
Continue
GERD
Continue PPI
History of DVT
Continue Xarelto
Anxiety depression
Continue Lexapro
Hyperparathyroidism
Continue Cinacalcet
History of PAD
Continue aspirin statin
Anticipated Discharge: 24 - 48 hours
Subjective/Interval History
-
Date of Service: November 14, 2025
seen and examined. no new complaints.
no admits to a wet cough
Objective Data
-
Labs:
Laboratory Results
11/14/25
06:57
WBC 17.1 H
Hgb 12.9
Hct 39.5
Plt Count 186
Sodium 136
Potassium 3.8
Chloride 101
Carbon Dioxide 29
BUN 16
Creatinine 0.6
Glucose 100 H
Calcium 9.2
Total Bilirubin 0.4
AST 34
ALT 38 H
Alkaline Phosphatase 88
Vital Signs:
Vital Signs
Temp Pulse Resp BP Pulse Ox
98.2 F 70 22 194/85 93
11/14/25 07:37 11/14/25 08:46 11/14/25 07:51 11/14/25 08:46 11/14/25 07:51
I&O
11/13/25 11/14/25 11/15/25
06:59 06:59 06:59
Intake Total 960 / 960 800 / 800
Balance 960 / 960 800 / 800
--- NOTE | 2025-11-14 14:38 | RESPNOTE ---
Arrived at bedside to perform home O2 test as ordered. Patient is confused and argumentative. She refuses to cooperate at this time.
--- NOTE | 2025-11-14 15:27 | CM ---
spoke with patient daughter Helga
patient on room air currently
home oxygen assessment ordered - per resp note unable to perform d/t pt argumenative, refused to cooperate
PT eval-no PT needs
[facility]
referral added in [facility] for [facility]
plan: [facility] when stable
[2025-11-14] MEDS: ZYPREXA 10 MG IM (15:33)
[2025-11-14] MEDS: STERILE WATER FOR INJECTION 2.1 ML IM (15:33)
[2025-11-14 15:36] VITALS: BP 182/77
[2025-11-14 16:49] LABS: Glucose - Point of Care 151 mg/dl (70-99)
--- NOTE | 2025-11-14 17:12 | W.PN.UPDATE ---
Addendum entered and electronically signed by Francisco J Campbell MD 11/15/25 09:01:
unable to obtain MRI as PPM is not compatible
Addendum entered and electronically signed by Eduard Hernandez MD 11/14/25 18:36:
Case discussed with Dr. Roderick Greenfield over the phone. He has reviewed the images, no LVO, no TNK, no indication for transfer. Recs were to check MRI brain.
Addendum entered and electronically signed by Eduard Hernandez MD 11/14/25 17:58:
CTA: NECK CTA:
50-70% diameter stenosis in the proximal left ICA.
Less than 50% diameter stenosis in the proximal right ICA.
Mild hypoplasia of the right vertebral artery.
Severe bilateral neural foraminal narrowing at C4/C5 and C5/C6.
Mild spinal cord compression and central canal stenosis at C4/C5 and C5/C6.
Small bilateral pleural effusions.
Severe calcific atherosclerotic plaque in the coronary arteries.
Mild subsegmental atelectasis, scarring, and small ground-glass pulmonary nodules in the lungs.
HEAD CTA:
Moderate bilateral temporal and parietal lobe volume loss suggesting a chronic neurodegenerative disease (probably ALZHEIMER'S DEMENTIA).
Mild periventricular white matter leukoaraiosis.
Severe calcific atherosclerotic plaque in the intracranial internal carotid arteries.
Moderate calcific atherosclerotic plaque in the left intracranial vertebral artery.
Original Note:
Update Note
Progress Note Update
Stroke alert note
Stroke alert was called at 1647 due to left facial droop and left upper extremity weakness, last known well time 1640 as per discussion with pt's RN Sue Jean-Baptiste.
85-year-old female who is currently hospitalized for acute hypoxemic respiratory failure due to influenza A and asthmatic bronchitis. History is unable to be obtained from the patient because she is confused. As per the patient's RN the patient
has been confused all day, so much so that she received 10 mg of IM Zyprexa at 1533. About 30 minutes after Zyprexa was given the patient became drowsy, had increased confusion, and hallucinations. At 1640 the patient's daughter said she was
having worsening slurred speech as well as increasing drowsiness. The patient has been able to follow commands. At the time of my evaluation the patient was having blood drawn from her left upper extremity. She was then rushed to CT scan. As
per discussion with nursing, NIHSS was 5.
Gen: NAD, Awake and alert
Eyes: EOMI, PERRLA, no scleral icterus.
Neck: supple.
CV: RRR, +S1/S2, no m/r/g.
Resp: CTAB, no rales, wheezes, or rhonchi.
Abd: +BS, soft, NT, ND
Skin: No rashes.
Neuro: CN 2-12 intact (able to follow command to smile and without facial droop), unable to participate in rest of neurological exam due to acuity, blood being drawn, and pt being rushed off to CT scan
Psych: Normal mood and affect.
CT brain: No CT evidence for acute intracranial hemorrhage or transcortical infarct. Moderate bilateral temporal and parietal lobe volume loss consistent with a chronic neurodegenerative disease (probably ALZHEIMER'S DEMENTIA).
Mild periventricular white matter leukoaraiosis. Mild paranasal sinus mucosal disease.
A/P:
Acute change in MS consisting of increased drowsiness with associated expressive aphasia, L facial droop, and L-sided weakness:
-case discussed with telestroke neurologist Dr. Roderick Greenfield at the time of the stroke alert
-CT brain above and without acute hemorrhage or transcortical infarct
-check CT brain perfusion, CTA head and neck
-Pt has been on Xarelto 2.5mg BID so clearly is not a TNK candidate
-The most likely etiology for the patient's change in mental status and above-mentioned symptoms is likely toxic metabolic encephalopathy from Zyprexa dosing in the setting of underlying dementia. I also note that the patient has been on IV
Decadron and prior progress notes document concern for steroid-induced psychosis. I think acute CVA is much less likely at this point in time.
-official neurology c/s placed for tomorrow
-place on tele
-neurochecks Q4H
Total critical care time spent = 53 minutes
--- NOTE | 2025-11-14 17:15 | PTCARENOTE ---
Pt having confusion throughout day due to hx dementia. Pt getting up out of bed frequently, difficult to redirect, Pt not oriented to time or place. Respiratory went in to perform an O2 assessment on pt, where pt had become agitated, combative,
uncooperative, with worsening confusion. Pt stated 'there was a man in here from [facility]', as pt started to have hallucinations. MD made aware. Zyprexa ordered. When RN came to give pt Zyprexa, pt's daughters present. Daughter mentioned that
last time pt became 'this confused' was when she had a UTI. MD messaged to see if UA should be ordered, but MD stated pt not showing any other signs of UTI, and pt is possibly experiencing steroid induced psychosis. RN informed daughter of Zyprexa,
reasoning and side effected, and asked daughter if they still wanted the Zyprexa to be given, daughter agreed. Zyprexa given at 1533. After about 30-45 minutes after administration of Zyprexa, pt started to have increased drowsiness and increased
confusion and hallucination. RN informed family again of the side effects of Zyprexa. Around 1643, daughter came out of room and stated pt now starting to have slurred speech and is having more lethargy. RN and tech came into room to assess pt. RN
took VS: 92%RA, 64HR, R arm BP 211/79, L arm BP 178/70. RN asked pt to identify pictures on NIH sheet, where pt was not able to identify most of the pictures, and was not able to state what was going on in the picture with the mother and children.
Pt difficult to understand due to slurred and garbled speech. Stroke alert called at 1647, On-call MD made aware via TT. Pt started to present with L sided facial droop, L arm drift without hitting bed and L leg drift without hitting bed. BG 151.
Verbal report given to responding Rapid Response nurses and MD. Pt taken to CT. Pt's attending made aware of events. When Pt came back form CT, pt's slurred and garbled speech improved, no facial droop, and no L arm or leg drift noted. Pt was able
to identify all items and events in pictures, and was able to read NIH sentences clearly. On-call and attending made aware.
[2025-11-14 17:16] LABS: Hematocrit 38.7 % (37.0-47.0); Hemoglobin 13.1 g/dL (12.0-16.0); Mean Corp Hgb Conc. 33.9 g/dL (33.0-37.0); Mean Corpuscular Volume 88.4 fL (81.0-99.0); Nucleated Red Blood Cells % 0 %; Platelet Count 174 10^3/uL (130-400); Red Cell Dist. Width 13.1 % (11.5-14.5)
[2025-11-14 17:26] LABS: ALT (SGPT) 41 U/L (0-35); AST (SGOT) 28 U/L (14-36); Albumin 3.9 g/dl (3.5-5.0); Alkaline Phosphatase 93 U/L (38-126); Blood Urea Nitrogen 17 mg/dl (7-17); Calcium 9.3 mg/dl (8.4-10.2); Carbon Dioxide 31 mmol/L (22-30); Chloride 98 mmol/L (98-107); Estimated Creatinine Clearance 79 ml/min; Glucose 151 mg/dl (70-99); Potassium 4.0 mmol/L (3.5-5.1); Sodium 135 mmol/L (135-145); Total Protein 6.7 g/dl (6.3-8.2); eGFR > 60.00
[2025-11-14 17:27] LABS: APTT 28.7 Sec (23.4-35.0); INR 1.10; PT 14.3 Sec (11.4-14.6)
[2025-11-14] MEDS: LIPITOR 80 MG PO (21:42)
[2025-11-14 22:58] VITALS: BP 168/61
[2025-11-15 06:13] VITALS: BMI 30.7
[2025-11-15] MEDS: SYNTHROID PO (06:25)
[2025-11-15 08:36] VITALS: BP 167/66
[2025-11-15] MEDS: XARELTO 2.5 MG PO ×2 (08:53→20:34)
[2025-11-15] MEDS: TRANDATE 200 MG PO ×2 (08:53→20:35)
[2025-11-15] MEDS: SENSIPAR 30 MG PO (08:53)
[2025-11-15] MEDS: TAMIFLU 75 MG PO ×2 (08:53→20:35)
[2025-11-15] MEDS: VIMPAT 100 MG PO ×2 (08:54→20:34)
[2025-11-15] MEDS: ASPIR LOW (ENTERIC COATED) 81 MG PO (08:54)
[2025-11-15] MEDS: VITAMIN D3 (cholecalciferol) 50 MCG PO (08:54)
[2025-11-15] MEDS: THERAGRAN 1 TABLET PO (08:54)
[2025-11-15] MEDS: PROTONIX 40 MG PO (08:54)
[2025-11-15] MEDS: COZAAR 50 MG PO ×2 (08:54→20:35)
[2025-11-15] MEDS: BRIVIACT 50 MG PO ×2 (08:54→20:34)
[2025-11-15] MEDS: LEXAPRO 20 MG PO (08:54)
[2025-11-15] MEDS: PROCARDIA XL (EXTENDED RELEASE) 30 MG PO (08:54)
--- NOTE | 2025-11-15 09:06 | CON.NEURO ---
Addendum entered and electronically signed by Angel Lloyd MD 11/15/25 19:43:
I saw and examined the patient today along with the nurse practitioner Kaitlynn Nunez, and agree with her assessment and management plan. Given below is my addendum..
Patient is an 85 year old female patient has medical history of seizures, DVT on Xarelto, hypothyroidism, hyperparathyroidism, PAD and HTN presented to the hospital from assisted living in [place] for concerns of cough on 11/11/2025, stroke
alerted on 11/14/2025 for left facial droop, confusion and left upper extremity weakness not a TNK candidate due being on Xarelto. The patient had received Zyprexa yesterday prior to her stroke alert being called.
. CT of the head does not show evidence of acute infarct.
. CTA of the head and neck shows 50 to 70% diameter stenosis of the proximal left ICA.
Today the patient appears to be quite calm and comfortable, and she was able to follow verbal commands however, she appeared to be drowsy and therefore exam was limited. The patient's speech was clear, there was no facial droop seen and the patient
had antigravity strength in all 4 extremities.
The patient is positive for influenza A and has been on Tamiflu day number 4 out of 5.
The patient was also on steroids they could also have contributed to patient is delirium and psychosis yesterday.
The patient does not appear to have had a stroke. No further imaging is necessary at this point. There is no history of witnessed seizure present yesterday. The etiology of patient's mental status change appears to be metabolic causes versus side
effect of medications.
Continue aspirin and Xarelto.
Seizure and delirium precautions.
Will sign off. Please call for any questions if needed.
Original Note:
Neuro Assessment/Plan
Assessment
Patient is an 85 year old female patient has medical history of seizures, DVT on Xarelto, hypothyroidism, hyperparathyroidism, PAD and HTN presented to the hospital from assisted living in [place] for concerns of cough on 11/11/2025, stroke
alerted on 11/14/2025 for left facial droop, confusion and left upper extremity weakness not a TNK candidate due being on anticoagulation.
CT perfusion 11/14/2025: CBF <20% Volume: [address] 11/14/2025:
1. No CT evidence for acute intracranial hemorrhage or transcortical infarct.
2. Moderate bilateral temporal and parietal lobe volume loss consistent with a chronic neurodegenerative disease (probably ALZHEIMER'S DEMENTIA).
3. Mild periventricular white matter leukoaraiosis.
4. Mild paranasal sinus mucosal disease.
ASPECT score: 10
NECK CTA 11/14/2025:
1. 50-70% diameter stenosis in the proximal left ICA.
2. Less than 50% diameter stenosis in the proximal right ICA.
3. Mild hypoplasia of the right vertebral artery.
4. Severe bilateral neural foraminal narrowing at C4/C5 and C5/C6.
5. Mild spinal cord compression and central canal stenosis at C4/C5 and C5/C6.
6. Small bilateral pleural effusions.
7. Severe calcific atherosclerotic plaque in the coronary arteries.
8. Mild subsegmental atelectasis, scarring, and small ground-glass pulmonary nodules in the lungs.
HEAD CTA 11/14/2025:
1. Moderate bilateral temporal and parietal lobe volume loss suggesting a chronic neurodegenerative disease (probably ALZHEIMER'S DEMENTIA).
2. Mild periventricular white matter leukoaraiosis.
3. Severe calcific atherosclerotic plaque in the intracranial internal carotid arteries.
4. Moderate calcific atherosclerotic plaque in the left intracranial vertebral artery.
Brain MRI unable to obtain incompatible PPM
Plan
Impression: abrupt onset of left facial droop, LUE weakness and confusion due to possible toxic metabolic encephalopathy given patient diagnosed with influenza and sedation as patient received large dose of Zyprexa
-continue ASA, xarelto and atorvastatin for secondary stroke prevention
-delirium precautions
-continue supportive care
Plan of care discussed with Dr. Lloyd and nurse
Consultation
Order
Date of Consultation: 11/15/25
Requesting Provider: hospitalist/ Dr. Eduard Hernandez
Reason for Consult: change in mental status
Subjective/Objective
Subjective Data
Date of Service: November 15, 2025
Patient is an 85 year old female patient has medical history of seizures, DVT on Xarelto, hypothyroidism, hyperparathyroidism, PAD and HTN presented to the hospital from assisted living in [place] for concerns of cough on 11/11/2025. Stroke alert
was called at yesterday 11/14/2025 at 1647 due to left facial droop and left upper extremity weakness, last known well time 1640. As per the patient's RN the patient had been confused all day, so much so that she received 10 mg of IM Zyprexa at
1533. About 30 minutes after Zyprexa was given the patient became drowsy, had increased confusion, and hallucinations. At 1640 the patient's daughter said she was having worsening slurred speech as well as increasing drowsiness. The patient had
been able to follow commands. NIHSS 5. Head CT showed no acute hemorrhage or infarct. Case discussed with Dr. Roderick Greenfield from [place] over the phone. He reviewed the images, no LVO and on Xarelto, no TNK, no indication for transfer. Recommended to
obtain brain MRI, however unable to obtain as PPM not compatible. Current exam NIHSS for confusion which is most likely her baseline. Physical exam limited as patient is uncooperative. No facial droop or weakness noted, exam non focal.
Objective Data
Vital Signs
Temp Pulse Resp BP Pulse Ox
97.4 F 61 18 167/66 93
11/15/25 08:36 11/15/25 08:53 11/15/25 08:36 11/15/25 08:53 11/15/25 08:36
Lab Results
11/14/25 17:07
11/14/25 17:07
PT 14.3 Sec (11.4-14.6) 11/14/25 17:07
INR 1.10 11/14/25 17:07
APTT 28.7 Sec (23.4-35.0) 11/14/25 17:07
Sodium 135 mmol/L (135-145) 11/14/25 17:07
Potassium 4.0 mmol/L (3.5-5.1) 11/14/25 17:07
BUN 17 mg/dl (7-17) 11/14/25 17:07
Glucose 151 mg/dl (70-99) H 11/14/25 17:07
Calcium 9.3 mg/dl (8.4-10.2) 11/14/25 17:07
Patient Allergies
amoxicillin Allergy (Verified 11/11/25 15:38)
oral ulcers
lacosamide Allergy (Verified 11/11/25 15:38)
Cannot have generic form, only brand name
shellfish derived Allergy (Verified 11/11/25 15:38)
Nausea / Vomiting/violent vomiting
CVA Assessment
NIH Stroke Score
Level of Consciousness: 1 - Arousable
LOC Questions: 0-Answers both correctly
LOC Commands: 0-Performs both correctly
Best Horizontal Gaze: 0-Normal
Visual Jenkins: 0=Normal, no visual loss
Facial Palsy: 0=Normal, symmetrical
Motor - Right Arm: 0=No drift 10 seconds
Motor - Left Arm: 0=No drift 10 seconds
Motor - Right Le-No drift 5 seconds
Motor - Left Le-No drift 5 seconds
Limb Ataxia: 0-Absent
Sensation: 0-Normal
Best Language: 0-No aphasia
Dysarthria: 0-Normal
Extinction and Inattention: 0-No abnormality
NIH Total Score:: 1
Tenecteplase Contraindications
Inclusion and Exclusion criteria reviewed: Yes
Physical Exam
-
physical exam limited as patient not cooperative
General: Comfortable and Appears Stated Age
HEENT: Normocephalic and Atraumatic
Neck: Full Range of Motion
Cardiac: No JVD
GI: Non-distended
Skin: Unremarkable
Extremities: No Clubbing, No Cyanosis and No Edema
Psych: Apparent Dementia; Negative Intact Judgement/Insight
Extended Neurological Exam
Attention Span & Concentration: Lethargic
Cranial Nerve VII: Facial Symmetry: Normal Facial Symmetry
Cranial Nerve VIII: Hearing: Unremarkable Hearing to Normal Conversational Volume
Muscle Strength, Overall: Full Throughout
Pronator Drift: No Drift in Upper Extremities and No Drift in Lower Extremities
Data Reviewed
-
CT-A: Report Reviewed and Image Reviewed
CT-Perfusion: Report Reviewed and Image Reviewed
CT Head: Report Reviewed and Image Reviewed
MRI Head: Ordered
Medical Test Reports: Report Reviewed
Labs: Report Reviewed
Lipid Profile: Ordered
HgbA1C: Ordered
Reviewed with: Physician
Old Records: Summarized
Medications
-
Active Medications
Generic Name Dose Route Start Last Admin
Trade Name Freq PRN Reason Stop Dose Admin
Acetaminophen 650 mg 11/11/25 13:44 11/13/25 08:31
Acetaminophen 325 Mg Tablet PO 12/09/25 13:43 650 mg
Q4HPRN PRN Administration
mild pain/SERRANO/temp> 100.4F
Albuterol/Ipratropium 3 ml 11/11/25 16:34 11/14/25 07:48
Ipratropium 0.5/Albuterol 3 Mg (3 Ml Ampul) INH 3 ml
R Q4HPRN PRN Administration
SOB
Protocol
Aspirin 81 mg 11/11/25 16:00 11/15/25 08:54
Aspirin 81 Mg (Enteric Coated) Tablet PO 12/09/25 15:59 81 mg
DAILY MARÍA Administration
Atorvastatin Calcium 80 mg 11/11/25 22:00 11/14/25 21:42
Atorvastatin (Lipitor) 80 Mg Tablet PO 12/09/25 21:59 80 mg
HS MARÍA Administration
Bisacodyl 10 mg 11/11/25 13:44
Bisacodyl 10 Mg Rectal Suppository RECTAL 12/09/25 13:43
[id number] PRN
constipation
Brivaracetam 50 mg 11/11/25 20:00 11/15/25 08:54
Brivaracetam 50 Mg Tablet PO 12/09/25 19:59 50 mg
BID MARÍA Administration
Cholecalciferol 50 mcg 11/12/25 08:00 11/15/25 08:54
Cholecalciferol (Vitamin D3) 50 Mcg Tablet (2,000 Units) PO 12/10/25 07:59 50 mcg
DAILY MARÍA Administration
Cinacalcet 30 mg 11/11/25 16:00 11/15/25 08:53
Cinacalcet 30 Mg Tablet PO 12/09/25 15:59 30 mg
DAILY MARÍA Administration
Escitalopram Oxalate 20 mg 11/12/25 08:00 11/15/25 08:54
Escitalopram 20 Mg Tablet PO 12/10/25 07:59 20 mg
DAILY MARÍA Administration
Guaifenesin/Dextromethorphan 200 mg 11/14/25 14:09
Guaifenesin Dm (Sugar/Dye/Alcohol/Sodium Free) 10 Ml Cup PO 12/12/25 14:08
Q6HPRN PRN
cough
Hydralazine HCl 10 mg 11/11/25 14:02
Hydralazine 20 Mg/Ml Vial IV 12/09/25 14:01
Q6HPRN PRN
>SBP 165 or >110DBP
Labetalol HCl 200 mg 11/11/25 20:00 11/15/25 08:53
Labetalol 200 Mg Tablet PO 12/09/25 19:59 200 mg
BID MARÍA Administration
Lacosamide 100 mg 11/11/25 20:00 11/15/25 08:54
Lacosamide (Vimpat) 100 Mg Tablet PO 12/09/25 19:59 100 mg
BID MARÍA Administration
Levothyroxine Sodium 125 mcg 11/12/25 06:00 11/15/25 06:25
Levothyroxine 125 Mcg Tablet PO 12/10/25 05:59 Not Given
[id number]@0600 MARÍA
Losartan Potassium 50 mg 11/11/25 20:00 11/15/25 08:54
Losartan 50 Mg Tablet PO 12/09/25 19:59 50 mg
BID MARÍA Administration
Multivitamins Therapeutic 1 tablet 11/12/25 08:00 11/15/25 08:54
Multivitamin Tablet PO 12/10/25 07:59 1 tablet
DAILY MARÍA Administration
Nifedipine 30 mg 11/11/25 16:00 11/15/25 08:54
Nifedipine 30 Mg Extended Release Tablet PO 12/09/25 15:59 30 mg
DAILY MARÍA Administration
Oseltamivir Phosphate 75 mg 11/11/25 22:00 11/15/25 08:53
Oseltamivir (Tamiflu) 75 Mg Capsule PO 11/16/25 21:59 75 mg
BID MARÍA Administration
Pantoprazole Sodium 40 mg 11/12/25 08:00 11/15/25 08:54
Pantoprazole 40 Mg Delayed Release Tablet PO 12/10/25 07:59 40 mg
DAILY MARÍA Administration
Polyethylene Glycol 17 grams 11/11/25 13:44 11/12/25 08:37
Polyethylene Glycol Powder 17 Grams Packet PO 12/09/25 13:43 17 grams
DAILYPRN PRN Administration
constipation
Rivaroxaban 2.5 mg 11/11/25 20:00 11/15/25 08:53
Rivaroxaban 2.5 Mg Tablet PO 12/09/25 19:59 2.5 mg
BID MARÍA Administration
Senna/Docusate Sodium 1 tablet 11/11/25 13:44
Docusate W/Senna (Venessa-Colace) Tablet PO 12/09/25 13:43
BIDPRN PRN
constipation
Sodium Chloride 0 flush 11/11/25 16:00
Sodium Chloride 0.9% (Flush) Syringe IV 12/09/25 15:59
PER PROTOCOL MARÍA
Home Medications
�Medication �Instructions �Recorded
aspirin 81 mg tablet,delayed 81 mg PO DAILY Blood Clot 10/20/20
release Prevention/Tx
brivaracetam 50 mg tablet 50 mg PO BID Seizures 10/20/20
(Briviact)
pantoprazole 40 mg tablet,delayed 40 mg PO DAILY Gastrointestinal 10/20/20
release Issue
rivaroxaban 2.5 mg tablet (Xarelto) 2.5 mg PO BID Blood Clot 03/08/23
Prevention/Tx
atorvastatin 80 mg tablet 80 mg PO HS High Cholesterol 12/09/23
cholecalciferol (vitamin D3) 50 50 mcg PO DAILY Supplement 11/07/24
mcg (2,000 unit) tablet (Vitamin
D3)
lacosamide 100 mg tablet (Vimpat) 100 mg PO BID Seizures 11/07/24
levothyroxine 125 mcg tablet 125 mcg PO SUTUWETHFRSA Thyroid 11/07/24
therapeutic multivitamin 1 tab PO DAILY Supplement 11/07/24
cinacalcet 30 mg tablet 30 mg PO DAILY #60 tabs 11/09/24
losartan 50 mg tablet 50 mg PO BID Blood Pressure #0 tabs 11/09/24
nifedipine 30 mg tablet,extended 30 mg PO DAILY #30 tabs 11/09/24
release
escitalopram oxalate 20 mg tablet 20 mg PO DAILY Mental 11/11/25
(Lexapro) Health/Anxiety
labetalol 200 mg tablet 200 mg PO BID Blood Pressure 11/11/25
Past History
Past History
ED Past Medical History: Other (Alzheimer's dementia, migraines, seizures, hypertension, hyperlipidemia, pacemaker, GERD, hypothyroidism, sleep apnea, depression)
ED Past Surgical History: Other
Family/Social History
Tobacco: Former smoker
Alcohol: None
Drug: None
Personal: Single
Living: other
Employment: Retired
Family History: Other
[2025-11-15 09:21] LABS: HDL Cholesterol 42 mg/dl; LDL Cholesterol, Calculated 76 mg/dl; Very Low Density Lipoprotein 34 mg/dl (0-30)
--- NOTE | 2025-11-15 14:03 | CM ---
spoke with patient daughter Helga
patient last night with rapid response
No CT evidence for acute intracranial hemorrhage or transcortical infarct
Helga requested resources for private cg for when she returns to [facility]
discussed needing to find out from [facility] (Sarwat PLATT) if patient can return to [facility] referral in [facility]. spoke with Carlos A Lo liaison (Karen Jensen back tomorrow)
PLAN: ?[facility] with [facility], daughter looking at private caregivers
[2025-11-15] MEDS: DUONEB 3 ML INH ×2 (14:15→19:43)
--- NOTE | 2025-11-15 14:40 | W.PN.HOSP.TC ---
Today's Communication/Plan
-
Assessment / Plan
Assessment / Plan
General: Well Developed, Well Nourished, No Apparent Distress and Comfortable, seems tired though not lethargic
HEENT: Normocephalic and Atraumatic
Respiratory: Clear to Auscultation
Cardiac: Regular Rhythm and S1/S2
GI: Soft, Nontender, Nondistended and Normal Bowel Sounds
Genito-urinary: No Costovertebral Tender and Clear Urine
Musculoskeletal: No Clubbing, No Cyanosis, No Edema and Clubbing
Neuro: Awake and AO x 3, no focal deficits noted
Psych: Calm
Acute hypoxemic respiratory failure secondary to influenza A and asthmatic bronchitis
Tamiflu x5days - day 4/5
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
Wean oxygen as tolerated
Incentive spirometer
Acapella's
Nebulizers as tolerated
Antitussive/mucolytics
Home o2 assessment
Hypertension
Continue antihypertensives
-Uncontrolled over last two days, could be related steroids/psychossi/agitation
--Would monitor for now, if continues persistent uncontrolled hypertension. have room to go up on losartan or can back nifedipine twice a day
Acute delirium/psychosis
Steroids induced vs Hospital acquired
Discontinued steroids should not be on steroids in the future
Provide delirium precautions
-Close the blinds at night, open them during the day, turn on the TV during the day turn off the TV at night same goes for the lights
-Continue reorientation. Update board with correct dates and remind Ms. Velazquez where she is and why she is in the hospital
Main reason of remaining in the hospital is to continue monitor mental status.
Discussed with family that she may not return to baseline mental status. Family Helga and Demetra both verbalized understanding
Discussed with family that she may need to be discharged home with this current mental status to her normal environment to see if this delirium resolves family Helga and Demetra both verbalized understanding
Hypothyroidism
Continue levothyroxine
History of epilepsy
Continue
GERD
Continue PPI
History of DVT
Continue Xarelto
Anxiety depression
Continue Lexapro
Hyperparathyroidism
Continue Cinacalcet
History of PAD
Continue aspirin statin
Anticipated Discharge: 24 - 48 hours
Subjective/Interval History
-
Date of Service: November 15, 2025
Seen and examined. Is able to have a full conversation.
Has baseline dementia however cognitively seems to be intact. Able to hold a conversation and has a great memory.
Does admit to not getting any sleep for the last 3 to 4 days.
States her eyes feel heavy bilaterally
Daughter at bedside. Helga second daughter was called this morning.
I reviewed delirium precautions with Demetra daughter at bedside and with nurse Chelsi.
Objective Data
-
Vital Signs:
Vital Signs
Temp Pulse Resp BP Pulse Ox
97.4 F 60 18 167/66 93
11/15/25 08:36 11/15/25 14:17 11/15/25 14:17 11/15/25 08:53 11/15/25 08:36
I&O
11/14/25 11/15/25 11/16/25
06:59 06:59 06:59
Intake Total 800 / 800 480 / 480
Balance 800 / 800 480 / 480
[2025-11-15 15:01] VITALS: BP 124/50
[2025-11-15] MEDS: SAFETUSSIN DM (SUGAR/ALCOHOL FREE) 200 MG PO (19:01)
--- NOTE | 2025-11-15 20:49 | CS.PSYCHR ---
Consult Summary - Psychiatry
-
pt seen this morning in consultion for mental status changes
85 yo woman came to ED 11/11 due to resp distress, found to have influenza A, started on oxygen, tamiflue and decadron. Yesterday 11/14 pt told RN that she was hearing voices from pillow. Kept trying to get out of bed complaining of urinary urgency.
Later in afternoon told RN that there was a man hiding in her room, became combative. Given zyprexa 10 mg IM, became lethargic. Stroke alert called, no stoke diagnosed.
Today pt is in much better control of self, far less sedated, able to give some history. Daughter and son-in-law arrived, described events as above and verified that pt is approaching baseline.
No prior psychiatric history except depression following of , treated with escitalopram.
Has been described as having some dementia but has been living essentially independently in assisted living, caring for self.
On exam pt is sleepy but arousable, able to state name, where she is, what month and year it is. Identifies daughter who visits. Moving all extremities, complaining of uncomfortable bed
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
Rec: Would avoid additional antipsychotics. Daughter warned of potential repeat of this experience if placed on steroids again, recommend prphylaxis with either low dose antipsychotics or lithium
[2025-11-15] MEDS: LIPITOR PO (22:23)
[2025-11-15 23:00] VITALS: BP 160/67
[2025-11-16 06:00] VITALS: BMI 30.3
[2025-11-16] MEDS: SYNTHROID 125 MCG PO (06:29)
[2025-11-16] MEDS: COZAAR 50 MG PO ×2 (08:06→21:19)
[2025-11-16] MEDS: LEXAPRO 20 MG PO (08:06)
[2025-11-16] MEDS: XARELTO 2.5 MG PO ×2 (08:07→21:17)
[2025-11-16] MEDS: PROTONIX 40 MG PO (08:07)
[2025-11-16] MEDS: TYLENOL 650 MG PO (08:07)
[2025-11-16] MEDS: VITAMIN D3 (cholecalciferol) 50 MCG PO (08:07)
[2025-11-16] MEDS: PROCARDIA XL (EXTENDED RELEASE) 30 MG PO (08:07)
[2025-11-16] MEDS: TRANDATE 200 MG PO ×2 (08:07→21:19)
[2025-11-16] MEDS: SENSIPAR 30 MG PO (08:07)
[2025-11-16] MEDS: BRIVIACT 50 MG PO ×2 (08:07→21:18)
[2025-11-16] MEDS: TAMIFLU 75 MG PO ×2 (08:07→21:19)
[2025-11-16] MEDS: VIMPAT 100 MG PO ×2 (08:07→21:18)
[2025-11-16] MEDS: THERAGRAN 1 TABLET PO (08:07)
[2025-11-16] MEDS: ASPIR LOW (ENTERIC COATED) 81 MG PO (08:07)
[2025-11-16] MEDS: SAFETUSSIN DM (SUGAR/ALCOHOL FREE) 200 MG PO (08:07)
[2025-11-16 08:14] VITALS: BP 157/77
--- NOTE | 2025-11-16 08:14 | PTCARENOTE ---
Date updated on board, window blinds open, and lights turned on per delirium precautions.
[2025-11-16 09:08] LABS: Hematocrit 40.8 % (37.0-47.0); Hemoglobin 13.5 g/dL (12.0-16.0); Mean Corp Hgb Conc. 33.1 g/dL (33.0-37.0); Mean Corpuscular Volume 90.5 fL (81.0-99.0); Nucleated Red Blood Cells % 0 %; Platelet Count 187 10^3/uL (130-400); Red Cell Dist. Width 13.0 % (11.5-14.5)
[2025-11-16 09:40] LABS: ALT (SGPT) 44 U/L (0-35); AST (SGOT) 24 U/L (14-36); Albumin 3.6 g/dl (3.5-5.0); Alkaline Phosphatase 87 U/L (38-126); Blood Urea Nitrogen 20 mg/dl (7-17); Calcium 9.1 mg/dl (8.4-10.2); Carbon Dioxide 30 mmol/L (22-30); Chloride 100 mmol/L (98-107); Estimated Creatinine Clearance 65 ml/min; Glucose 113 mg/dl (70-99); Potassium 3.4 mmol/L (3.5-5.1); Sodium 136 mmol/L (135-145); Total Protein 6.1 g/dl (6.3-8.2); eGFR > 60.00
--- NOTE | 2025-11-16 11:05 | W.PN.HOSP.TC ---
Today's Communication/Plan
-
Monitor vital signs and see plan
Replete potassium
Continue with Tamiflu
Add Tessalon Perles
Monitor mental status closely
home o2 eval
Potential discharge tomorrow
Assessment / Plan
Assessment / Plan
General: Well Developed, Well Nourished, No Apparent Distress and Comfortable, seems tired
HEENT: Normocephalic and Atraumatic
Respiratory: Clear to Auscultation
Cardiac: Regular Rhythm and S1/S2
GI: Soft, Nontender, Nondistended and Normal Bowel Sounds
Musculoskeletal:No Edema
Neuro: Awake and AO x 3, no focal deficits noted
Psych: Calm
Acute hypoxemic respiratory failure secondary to influenza A and asthmatic bronchitis
Tamiflu x5days - day /5
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
Now weaned off oxygen, will need home O2 evaluation
Incentive spirometer
Acapella's
Nebulizers as tolerated
Antitussive/mucolytics
add tessalon
Hypertension
Continue antihypertensives
-Uncontrolled over last two days, could be related steroids/psychossi/agitation
--Would monitor for now, if continues persistent uncontrolled hypertension. have room to go up on losartan or can back nifedipine twice a day
Acute delirium/psychosis
Steroids induced vs Hospital acquired
Discontinued steroids should not be on steroids in the future
Provide delirium precautions
-Close the blinds at night, open them during the day, turn on the TV during the day turn off the TV at night same goes for the lights
-Continue reorientation. Update board with correct dates and remind Ms. Velazquez where she is and why she is in the hospital
Main reason of remaining in the hospital is to continue monitor mental status.
Discussed with family that she may not return to baseline mental status. Family Helga and Demetra both verbalized understanding
Discussed with family that she may need to be discharged home with this current mental status to her normal environment to see if this delirium resolves family Helga and Demetra both verbalized understanding
Hypokalemia
Replete
Hypothyroidism
Continue levothyroxine
History of epilepsy
Continue
GERD
Continue PPI
History of DVT
Continue Xarelto
Anxiety depression
Continue Lexapro
Hyperparathyroidism
Continue Cinacalcet
History of PAD
Continue aspirin statin
DVTppx
xarelto
Full code
Anticipated Discharge: Within 24 hours
Subjective/Interval History
-
Date of Service: November 16, 2025
Denies pain
Objective Data
-
Labs:
Laboratory Results
11/16/25
08:55
WBC 8.9
Hgb 13.5
Hct 40.8
Plt Count 187
Sodium 136
Potassium 3.4 L
Chloride 100
Carbon Dioxide 30
BUN 20 H
Creatinine 0.7
Glucose 113 H
Calcium 9.1
Total Bilirubin 0.5
AST 24
ALT 44 H
Alkaline Phosphatase 87
Vital Signs:
Vital Signs
Temp Pulse Resp BP Pulse Ox
97.7 F 68 18 157/77 90
11/16/25 08:14 11/16/25 08:14 11/16/25 08:14 11/16/25 08:14 11/16/25 08:14
I&O
11/15/25 11/16/25 11/17/25
06:59 06:59 06:59
Intake Total 480 / 480 480 / 480
Output Total 200 / 200
Balance 480 / 480 -200 / -200 480 / 480
[2025-11-16 11:32] VITALS: BP 127/71
[2025-11-16] MEDS: KCL 20 MEQ PO (11:42)
[2025-11-16] MEDS: TESSALON PERLES 100 MG PO ×3 (11:42→21:19)
--- NOTE | 2025-11-16 13:50 | CM ---
VM received from Marnie/Nurse at [facility] [phone], returning call from [facility] regarding if patient can return there. Update to ELIZABETH.
--- NOTE | 2025-11-16 14:18 | CM ---
Left message w/ Marnie/Nurse at [facility] regarding potential discharge for patient tomorrow
[2025-11-16 16:20] VITALS: BP 127/52
--- NOTE | 2025-11-16 16:33 | W.PN.UPDATE ---
Update Note
Progress Note Update
85 y/o woman living in [facility] in [place] admitted with Jesse Vazquez and likely developed psychotic symptoms for steroids. Was given one dose of Zypexa 10 mg. on 11/14 which was very sedating. No longer having any psychotic symptoms. Was a
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 Helps elderly residents where she lives. Has loving family. 5 years ago and she finds it hard to live alone.
Interestingly, she said she has never had problems with depression or anxiety,yet is taking Lexapro 20 mg.
On exam elderly overweight woman with white hair. Very talkative. Oriented to place, situation and time. Voice very hoarse. Occasional cough. Sat up on edge of bed with ease. Denies any hallucinations or paranoid thoughts.
No need for further psychiatric intervention. Signing off.
[2025-11-16 21:14] VITALS: BP 158/65
[2025-11-16] MEDS: LIPITOR 80 MG PO (21:17)
[2025-11-17 05:23] VITALS: BMI 31.0
[2025-11-17] MEDS: SYNTHROID 125 MCG PO (06:19)
[2025-11-17 07:10] VITALS: BP 170/64
[2025-11-17] MEDS: VITAMIN D3 (cholecalciferol) 50 MCG PO (08:10)
[2025-11-17] MEDS: VIMPAT 100 MG PO ×2 (08:10→21:01)
[2025-11-17] MEDS: SENSIPAR 30 MG PO (08:10)
[2025-11-17] MEDS: TRANDATE 200 MG PO ×2 (08:10→21:14)
[2025-11-17] MEDS: BRIVIACT 50 MG PO ×2 (08:10→21:01)
[2025-11-17] MEDS: LEXAPRO 20 MG PO (08:10)
[2025-11-17] MEDS: XARELTO 2.5 MG PO ×2 (08:10→21:01)
[2025-11-17] MEDS: ASPIR LOW (ENTERIC COATED) 81 MG PO (08:10)
[2025-11-17] MEDS: TESSALON PERLES 100 MG PO ×3 (08:11→21:01)
[2025-11-17] MEDS: COZAAR 50 MG PO ×2 (08:11→21:12)
[2025-11-17] MEDS: PROTONIX 40 MG PO (08:11)
[2025-11-17] MEDS: THERAGRAN 1 TABLET PO (08:11)
[2025-11-17] MEDS: PROCARDIA XL (EXTENDED RELEASE) 30 MG PO ×2 (08:11→21:13)
[2025-11-17] MEDS: SAFETUSSIN DM (SUGAR/ALCOHOL FREE) 200 MG PO (08:18)
[2025-11-17 09:41] LABS: Hematocrit 43.3 % (37.0-47.0); Hemoglobin 14.0 g/dL (12.0-16.0); Mean Corp Hgb Conc. 32.3 g/dL (33.0-37.0); Mean Corpuscular Volume 89.6 fL (81.0-99.0); Nucleated Red Blood Cells % 0 %; Platelet Count 222 10^3/uL (130-400); Red Cell Dist. Width 13.0 % (11.5-14.5)
[2025-11-17 10:06] LABS: ALT (SGPT) 46 U/L (0-35); AST (SGOT) 22 U/L (14-36); Albumin 3.7 g/dl (3.5-5.0); Alkaline Phosphatase 86 U/L (38-126); Blood Urea Nitrogen 16 mg/dl (7-17); Calcium 9.4 mg/dl (8.4-10.2); Carbon Dioxide 31 mmol/L (22-30); Chloride 102 mmol/L (98-107); Estimated Creatinine Clearance 65 ml/min; Glucose 120 mg/dl (70-99); Potassium 3.9 mmol/L (3.5-5.1); Sodium 138 mmol/L (135-145); Total Protein 6.4 g/dl (6.3-8.2); eGFR > 60.00
--- NOTE | 2025-11-17 10:28 | W.PN.HOSP.TC ---
Today's Communication/Plan
-
Monitor vital signs see plan
Start DuoNeb 4 times daily for now
Monitor breathing status
Increase nifedipine to twice daily
Hopeful discharge tomorrow
Discussed with daughter
Assessment / Plan
Assessment / Plan
General: Well Developed, Well Nourished, No Apparent Distress and Comfortable, seems tired
HEENT: Normocephalic and Atraumatic
Respiratory: Clear to Auscultation
Cardiac: Regular Rhythm and S1/S2
GI: Soft, Nontender, Nondistended and Normal Bowel Sounds
Musculoskeletal:No Edema
Neuro: Awake and AO x 3, no focal deficits noted
Psych: Calm
Acute hypoxemic respiratory failure secondary to influenza A and asthmatic bronchitis
Finished Tamiflu
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
Now weaned off oxygen, will need home O2 evaluation
Incentive spirometer
Acapella's
Nebulizers as tolerated; Wheezing this morning. Add QID DuoNeb for now. Likely will need to be discharged with DuoNeb for brief period
Antitussive/mucolytics
add tessalon
Hypertension
Continue antihypertensives
-Uncontrolled over last two days, could be related steroids/psychossi/agitation
--Monitor, increase Procardia to twice daily
Acute delirium/psychosis
Steroids induced vs Hospital acquired
Discontinued steroids should not be on steroids in the future
Provide delirium precautions
-Close the blinds at night, open them during the day, turn on the TV during the day turn off the TV at night same goes for the lights
-Continue reorientation. Update board with correct dates and remind Ms. Velazquez where she is and why she is in the hospital
Main reason of remaining in the hospital is to continue monitor mental status.
Mental status appears to be improving, appears now close to baseline
Hypokalemia
resolved
Hypothyroidism
Continue levothyroxine
History of epilepsy
Continue
GERD
Continue PPI
History of DVT
Continue Xarelto
Anxiety depression
Continue Lexapro
Hyperparathyroidism
Continue Cinacalcet
History of PAD
Continue aspirin statin
DVTppx
xarelto
Full code
Anticipated Discharge: Within 24 hours
Subjective/Interval History
-
Date of Service: November 17, 2025
has some wheezing this morning
Objective Data
-
Labs:
Laboratory Results
11/17/25
08:48
WBC 10.9 H
Hgb 14.0
Hct 43.3
Plt Count 222
Sodium 138
Potassium 3.9
Chloride 102
Carbon Dioxide 31 H
BUN 16
Creatinine 0.7
Glucose 120 H
Calcium 9.4
Total Bilirubin 0.5
AST 22
ALT 46 H
Alkaline Phosphatase 86
Vital Signs:
Vital Signs
Temp Pulse Resp BP Pulse Ox
97.9 F 62 18 170/64 96
11/17/25 07:10 11/17/25 08:10 11/17/25 07:10 11/17/25 08:10 11/17/25 07:10
I&O
11/16/25 11/17/25 11/18/25
06:59 06:59 06:59
Intake Total 1440 / 1440
Output Total 200 / 200
Balance -200 / -200 1440 / 1440
[2025-11-17] MEDS: DUONEB 3 ML INH ×4 (11:21→21:45)
--- NOTE | 2025-11-17 14:51 | PTCARENOTE ---
Family member at bedside expressed concern about patient's wheezing. Pt displayed hoarse voice with dry cough, diminished wheezing heard. Family inquired about CXR, made aware and informed this RN that there is no need at this time, that NEBs are
ordered and wheezing should get better with time.
[2025-11-17 15:30] VITALS: BP 139/59
[2025-11-17] MEDS: LIPITOR 80 MG PO (21:01)
[2025-11-17 23:41] VITALS: BP 147/68
[2025-11-18 06:00] VITALS: BMI 31.7
[2025-11-18] MEDS: SYNTHROID 125 MCG PO (06:21)
[2025-11-18 06:30] LABS: Hematocrit 40.5 % (37.0-47.0); Hemoglobin 13.2 g/dL (12.0-16.0); Mean Corp Hgb Conc. 32.6 g/dL (33.0-37.0); Mean Corpuscular Volume 90.0 fL (81.0-99.0); Nucleated Red Blood Cells % 0 %; Platelet Count 214 10^3/uL (130-400); Red Cell Dist. Width 13.0 % (11.5-14.5)
[2025-11-18 06:52] LABS: ALT (SGPT) 39 U/L (0-35); AST (SGOT) 18 U/L (14-36); Albumin 3.4 g/dl (3.5-5.0); Alkaline Phosphatase 78 U/L (38-126); Blood Urea Nitrogen 18 mg/dl (7-17); Calcium 9.1 mg/dl (8.4-10.2); Carbon Dioxide 28 mmol/L (22-30); Chloride 105 mmol/L (98-107); Estimated Creatinine Clearance 66 ml/min; Glucose 117 mg/dl (70-99); Potassium 3.8 mmol/L (3.5-5.1); Sodium 137 mmol/L (135-145); Total Protein 6.0 g/dl (6.3-8.2); eGFR > 60.00
[2025-11-18] MEDS: DUONEB 3 ML INH ×2 (07:28→11:12)
[2025-11-18 07:57] VITALS: BP 116/43
[2025-11-18] MEDS: PROCARDIA XL (EXTENDED RELEASE) 30 MG PO (08:25)
[2025-11-18] MEDS: BRIVIACT 50 MG PO (08:25)
[2025-11-18] MEDS: VIMPAT 100 MG PO (08:25)
[2025-11-18] MEDS: PROTONIX 40 MG PO (08:26)
[2025-11-18] MEDS: TRANDATE 200 MG PO (08:26)
[2025-11-18] MEDS: XARELTO 2.5 MG PO (08:26)
[2025-11-18] MEDS: TESSALON PERLES 100 MG PO (08:26)
[2025-11-18] MEDS: COZAAR 50 MG PO (08:26)
[2025-11-18] MEDS: ASPIR LOW (ENTERIC COATED) 81 MG PO (08:26)
[2025-11-18] MEDS: SENSIPAR 30 MG PO (08:26)
[2025-11-18] MEDS: LEXAPRO 20 MG PO (08:26)
[2025-11-18] MEDS: THERAGRAN 1 TABLET PO (08:27)
[2025-11-18] MEDS: VITAMIN D3 (cholecalciferol) 50 MCG PO (08:27)
--- NOTE | 2025-11-18 09:10 | CM ---
Addendum entered by Genesis Gerber 11/18/25 11:47:
SPOKE WITH MARNIE AT [facility] - NOTIFIED OF DISCHARGE TODAY - OK
IMM explained & signed. In chart.
PLAN: [facility] with [facility] today
[facility] fax #: [phone]
[facility] p)[phone] fax #:[phone]
Helga dtr to transport
Original Note:
LM for Marnie at [facility] - [phone] - patient stable for discharge
Referral in [facility] for [facility] - accepted - spoke with Karen Jensen liaison
spoke with daughter Helga - await call back from Marnie at [facility]
PLAN: [facility] with [facility], await call back from Marnie at [facility] fax #: [phone]
[facility] p)[phone] fax #:[phone]
--- NOTE | 2025-11-18 12:18 | W.DCSUMMARY ---
Discharge Summary
Discharge Data
Date of Admission: 11/11/25
Date of Discharge: 11/18/25
-
Pending Results: No
Hospital Course
85 year old female patient has medical history of Hx of seizures, Hx of DVT on Xarelto, hypothyroidism, Hx of hyperparathyroidism, PAD and HTN
Presented with acute hypoxemic respiratory failure secondary to influenza A and asthma exacerbation. Started on Tamiflu along with steroids. Was able to wean off of supplemental oxygen however developed acute psychosis likely secondary to steroids
versus hospital-acquired delirium. Therefore steroids were discontinued. Provided IM Zyprexa as the psychosis progressed with agitation combativeness. Unfortunately developed some slurring of his speech and reported facial droop therefore stroke
alert was called. CT without evidence of acute CVA. Neurology evaluated no focal neurological deficits continue aspirin and statin and Xarelto. Psychiatry evaluated no additional recommendations apart from some avoid Zyprexa and steroids in the
future. Mental status did improve. Delirium precautions were recommended. Will need continued outpatient neuropsychiatric follow-up for staging of dementia as CT scan did demonstrate findings consistent with Alzheimer's dementia. Unable to
obtain MRI due to incompatible PPM. Mental status back to baseline. Dc back to assisted living facility with home health aides.
She is DNR/DNI
Head CT
IMPRESSION:
No acute intracranial abnormality noted.
CXR
IMPRESSION:
Stable examination. No acute cardiopulmonary process.
Head Neck CT
NECK CTA:
1. 50-70% diameter stenosis in the proximal left ICA.
2. Less than 50% diameter stenosis in the proximal right ICA.
3. Mild hypoplasia of the right vertebral artery.
4. Severe bilateral neural foraminal narrowing at C4/C5 and C5/C6.
5. Mild spinal cord compression and central canal stenosis at C4/C5 and C5/C6.
6. Small bilateral pleural effusions.
7. Severe calcific atherosclerotic plaque in the coronary arteries.
8. Mild subsegmental atelectasis, scarring, and small ground-glass pulmonary nodules in the lungs.
HEAD CTA:
1. Moderate bilateral temporal and parietal lobe volume loss suggesting a chronic neurodegenerative disease (probably ALZHEIMER'S DEMENTIA).
2. Mild periventricular white matter leukoaraiosis.
3. Severe calcific atherosclerotic plaque in the intracranial internal carotid arteries.
4. Moderate calcific atherosclerotic plaque in the left intracranial vertebral artery.
Head CT
IMPRESSION:
1. No CT evidence for acute intracranial hemorrhage or transcortical infarct.
2. Moderate bilateral temporal and parietal lobe volume loss consistent with a chronic neurodegenerative disease (probably ALZHEIMER'S DEMENTIA).
3. Mild periventricular white matter leukoaraiosis.
4. Mild paranasal sinus mucosal disease.
Seen and examined on day of discharge which was 11/18/2025. No new complaints. No acute overnight events.
Helga daughter at bedside. Reviewed medical history and chart reviewed. Reviewed CT brain findings with her.
NAD, elderly, sitting on edge of bed, appears better than stated age
Scleral Anicteric
MMM
No JVD
CTABL
RRR, S1/S2
Soft, NT, ND, BS+
Warm, Dry
AAOx3
Calm
More than 30 minutes spent in discharge including
Final examination of the patient
Summarizing hospital stay
Instructions for continuing care to all relevant caregivers
Preparation of discharge records, prescriptions, and referral forms
Total time spent (in minutes): 33mins
Discharge Plan
-
Patient Disposition: Home with Home Care
Discharge Diagnosis/Procedures: Acute hypoxemic respiratory failure
Influenza
Asthma exacerbation
Steroid-induced psychosis
Hypertension
Condition: Fair
Diet: Regular, Low Fat, Low Cholesterol, 2 Gram Sodium and No added salt
Activity: As tolerated
Driving Restrictions: Not until seen by your Dr
Activity Restrictions/Additional Instructions:
Presented with acute hypoxemic respiratory failure secondary to influenza A and asthma exacerbation. Started on Tamiflu along with steroids. Was able to wean off of supplemental oxygen however developed acute psychosis likely secondary to steroids
versus hospital-acquired delirium. Therefore steroids were discontinued. Provided IM Zyprexa as the psychosis progressed with agitation combativeness. Unfortunately developed some slurring of his speech and reported facial droop therefore stroke
alert was called. CT without evidence of acute CVA. Neurology evaluated no focal neurological deficits continue aspirin and statin and Xarelto. Psychiatry evaluated no additional recommendations apart from some avoid Zyprexa and steroids in the
future. Mental status did improve. Delirium precautions were recommended. Will need continued outpatient neuropsychiatric follow-up for staging of dementia as CT scan did demonstrate findings consistent with Alzheimer's dementia. Unable to
obtain MRI due to incompatible PPM. Mental status back to baseline. Dc back to assisted living facility with home health aides.
She is DNR/DNI
Head CT
IMPRESSION:
No acute intracranial abnormality noted.
CXR
IMPRESSION:
Stable examination. No acute cardiopulmonary process.
Head Neck CT
NECK CTA:
1. 50-70% diameter stenosis in the proximal left ICA.
2. Less than 50% diameter stenosis in the proximal right ICA.
3. Mild hypoplasia of the right vertebral artery.
4. Severe bilateral neural foraminal narrowing at C4/C5 and C5/C6.
5. Mild spinal cord compression and central canal stenosis at C4/C5 and C5/C6.
6. Small bilateral pleural effusions.
7. Severe calcific atherosclerotic plaque in the coronary arteries.
8. Mild subsegmental atelectasis, scarring, and small ground-glass pulmonary nodules in the lungs.
HEAD CTA:
1. Moderate bilateral temporal and parietal lobe volume loss suggesting a chronic neurodegenerative disease (probably ALZHEIMER'S DEMENTIA).
2. Mild periventricular white matter leukoaraiosis.
3. Severe calcific atherosclerotic plaque in the intracranial internal carotid arteries.
4. Moderate calcific atherosclerotic plaque in the left intracranial vertebral artery.
Head CT
IMPRESSION:
1. No CT evidence for acute intracranial hemorrhage or transcortical infarct.
2. Moderate bilateral temporal and parietal lobe volume loss consistent with a chronic neurodegenerative disease (probably ALZHEIMER'S DEMENTIA).
3. Mild periventricular white matter leukoaraiosis.
4. Mild paranasal sinus mucosal disease.
Referrals:
Jennie Leonard CRNP [[facility] Professional Person[facility], Neurology] - in two to four weeks
Sharmin Mendez MD [Family Provider, Family Practice]
Prescriptions:
Continued
aspirin 81 MG tablet,delayed release (DR/EC)
81 mg PO DAILY
pantoprazole 40 MG tablet,delayed release (DR/EC)
40 mg PO DAILY
brivaracetam [Briviact] 50 MG tablet
50 mg PO BID
rivaroxaban [Xarelto] 2.5 mg Tablet
2.5 mg PO BID
atorvastatin 80 mg tablet
80 mg PO HS
therapeutic multivitamin Tablet
1 tab PO DAILY
cholecalciferol (vitamin D3) [Vitamin D3] 50 mcg (2,000 unit) Tablet
50 mcg PO DAILY
lacosamide [Vimpat] 100 mg Tablet
100 mg PO BID
levothyroxine 125 mcg Tablet
125 mcg PO SUTUWETHFRSA
nifedipine 30 mg Tablet Extended Release
30 mg PO DAILY Qty: 30 0RF
losartan 50 mg Tablet
50 mg PO BID Qty: 0 0RF
cinacalcet 30 mg Tablet
30 mg PO DAILY Qty: 60 0RF
labetalol 200 mg Tablet
200 mg PO BID
escitalopram oxalate [Lexapro] 20 mg Tablet
20 mg PO DAILY
Discharge Orders:
Discharge Patient (As Directed); Ordered 11/18/25
Ordered By: Francisco J Campbell
Discharge Date and Time
Print Language: POLISH
[2025-11-18 15:06] VITALS: BP 134/54
[2025-11-18] MEDS: DUONEB INH (16:17)
== END 2025-11-18 16:41 | disposition home health service (06) | DRG 193 ==
LOC: 3 WEST ACU 14:37
PROVIDERS: Internal Medicine; Nurse Practitioner; Student in an Organized Health Care Education/Training Program; ADMITTING PHYSICIAN Internal Medicine; ATTENDING PHYSICIAN Hospitalist; CONSULT PHYSICIAN Psychiatry & Neurology Neurology; CONSULT PHYSICIAN Psychiatry & Neurology Psychiatry; EMERGENCY PHYSICIAN Emergency Medicine; FAMILY PHYSICIAN Family Medicine
DX: J10.1 Influenza due to other identified influenza virus with other respiratory manifestations (principal); G92.8 Other toxic encephalopathy; J96.01 Acute respiratory failure with hypoxia; J98.11 Atelectasis; F02.83 Dementia in other diseases classified elsewhere, unspecified severity, with mood disturbance; F23 Brief psychotic disorder; J45.901 Unspecified asthma with (acute) exacerbation; I10 Essential (primary) hypertension; F32.A Depression, unspecified; G30.9 Alzheimer's disease, unspecified; E03.9 Hypothyroidism, unspecified; I73.9 Peripheral vascular disease, unspecified; E21.3 Hyperparathyroidism, unspecified; E87.6 Hypokalemia; E78.5 Hyperlipidemia, unspecified; T38.0X5A Adverse effect of glucocorticoids and synthetic analogues, initial encounter; Z66 Do not resuscitate; I45.9 Conduction disorder, unspecified; G43.909 Migraine, unspecified, not intractable, without status migrainosus; G40.909 Epilepsy, unspecified, not intractable, without status epilepticus; I25.10 Atherosclerotic heart disease of native coronary artery without angina pectoris; G47.33 Obstructive sleep apnea (adult) (pediatric); K21.9 Gastro-esophageal reflux disease without esophagitis; F41.9 Anxiety disorder, unspecified; Z11.52 Encounter for screening for COVID-19; Z79.899 Other long term (current) drug therapy; Z86.718 Personal history of other venous thrombosis and embolism; Z87.891 Personal history of nicotine dependence; Z95.0 Presence of cardiac pacemaker
CPT/HCPCS: 70450; 70496; 70498; 71046; 80053; 80061; 82962; 85025; 85610; 85730; 87502; 87811; 93005; 94640; 96361; 96374; 97161; 99285; J2358; Q9967